=== PATIENT | female | born 1975 | race Caucasian/White ===

== ENCOUNTER 2017-11-26 17:02 | Inpatient (IN) | payer OTHER, SELFPAY ==
[2017-11-26] VITALS (7 sets, daily range): BP systolic 99–116; BP diastolic 54–83; PULSE 94–111; RESP 16–24; TEMP 38.3–38.6; O2SAT 96–99
--- NOTE | 2017-11-26 17:36 | DI.CT.S_ITS ---
PROCEDURE: CT ABDOMEN PELVIS W CON INDICATIONS: left side abdominal pain, black stools, abd tenderness/bloating TECHNIQUE: After the administration of oral and intravenous contrast, 5 mm thick sections acquired from the diaphragms to the symphysis. 5 mm thick coronal and sagittal reformats were performed. For radiation dose reduction, the following was used: automated exposure control, adjustment of mA and/or kV according to patient size. COMPARISON: None. FINDINGS: Image quality: Excellent. ABDOMEN: Lung bases: Lung bases are clear. Heart size is normal. Solid organs: Liver is normal in size and enhancement. Gallbladder is surgically absent. There is mild intrahepatic biliary ductal dilatation. Pancreas enhances normally. Spleen is normal in size and enhancement. No adrenal nodules. Kidneys are normal in size and enhancement, without hydronephrosis. Peritoneum and bowel: Stomach, small bowel, and colon loops are normal in caliber and wall thickness. The appendix is thin walled. No free fluid or air. Nodes and vessels: No retroperitoneal or mesenteric adenopathy. Aorta and inferior vena cava are normal in caliber. Miscellaneous: No ventral hernias. PELVIS: Genitourinary: Bladder wall thickness is normal. Miscellaneous: No inguinal hernias or adenopathy. Bones: No suspicious bony lesions. No vertebral body compression fractures. There are bilateral pars interarticularis defects. There is grade L5 on S1 anterolisthesis. IMPRESSION: 1. No acute intra-abdominal findings. Normal appendix. 2. Mild intrahepatic ductal dilatation likely related to prior cholecystectomy. 3. L5/S1 spondylolysis and spondylolisthesis. Dictated by: Delma Singleton M.D. on 11/26/2017 at 19:24 Approved by: Delma Singleton M.D. on 11/26/2017 at 19:28
[2017-11-26] MEDS: HYDROMORPHONE 0.5 MG INJ 1 MG IV (17:44)
[2017-11-26] MEDS: SODIUM CHLORIDE 0.9% 1,000 ML 1000 ML IV ×2 (17:44→22:17)
[2017-11-26] MEDS: ONDANSETRON 4 MG/2 ML INJ IV (17:45)
--- NOTE | 2017-11-26 18:22 | DI.RAD.S_ITS ---
PROCEDURE: XR CHEST 1V INDICATIONS: POSSIBLE FREE AIR TECHNIQUE: One view of the chest was acquired. COMPARISON: None. FINDINGS: Surgical changes and devices: None. Lungs and pleura: No pleural effusions or pneumothorax. Lungs are clear. Mediastinum: Mediastinal contours appear normal. Heart size is normal. Bones and chest wall: No suspicious bony lesions. Overlying soft tissues appear unremarkable. IMPRESSION: No acute cardiopulmonary findings. Dictated by: Delma Singleton M.D. on 11/26/2017 at 19:17 Approved by: Delma Singleton M.D. on 11/26/2017 at 19:17
[2017-11-26 18:39] LABS: Add Manual Diff / Slide Review NO; Basophils Percent Auto 0.2 % (0-2); Eosinophils Percent Auto 0.1 % (2-4); Hematocrit 39.6 % (36-46); Hemoglobin 13.9 g/dL (12.0-16.0); Lymphocytes Percent Auto 6.7 % (25-40); Mean Corpuscular HGB Conc 35.1 % (30-36); Mean Corpuscular Hemoglobin 34.5 PG (26-34); Mean Corpuscular Volume 98.6 fL (80-100); Monocytes Percent Auto 9.6 % (3-14); Neutrophils Absolute Auto 11000 /uL (3000-5900); Neutrophils Percent Auto 83.4 % (50-75); Platelet Count 192 X10^3/uL (150-400); Red Blood Cell Count 4.01 X10^6/uL (4.0-5.2); Red Cell Distribution Width 12.7 % (11.6-14.8); White Blood Cell Count 13.1 X10^3/uL (4.5-11.0)
[2017-11-26] MEDS: HALOPERIDOL 5 MG/ML VIAL 2 MG IV (18:40)
[2017-11-26 18:51] LABS: Lipase 122 U/L (23-300)
[2017-11-26 18:52] LABS: Alanine Aminotransferase 171 IU/L (9-52); Albumin Globulin Ratio 1.4 (1.0-2.8); Alkaline Phosphatase 362 U/L (38-126); Aspartate Aminotransferase 193 IU/L (14-36); Bilirubin Total 1.2 mg/dL (0.2-1.3); Blood Urea Nitrogen 11 mg/dL (7-17); Calcium 8.5 mg/dL (8.4-10.2); Carbon Dioxide 26 mmol/L (22-32); Chloride 97 mmol/L (98-107); Estimated Glomerular Filt Rate > 60.0 mL/min (>60); Globulin 2.9 g/dL (1.7-4.1); Glucose 92 mg/dL (70-100); HEMOLYSIS 17 (0-50); Potassium 3.3 mmol/L (3.4-5.1); Sodium 134 mmol/L (137-145); Total Protein 6.9 g/dL (6.3-8.2)
[2017-11-26 18:56] LABS: C-Reactive Protein Quant 5.3 mg/dL (<1.0)
[2017-11-26 19:09] LABS: Erythrocyte Sedimentation Rate 18 MM/HR (0-20)
[2017-11-26 20:49] LABS: Appearance Urine UA CLEAR; Bilirubin Urine UA NEGATIVE (NEGATIVE); Color Urine UA YELLOW; Glucose Urine UA NEGATIVE (Normal); Ketones Urine UA 1+ (NEGATIVE); Leukocyte Esterase Urine UA 1+ (NEGATIVE); Nitrite Urine UA POSITIVE (Negative); Occult Blood Urine UA 2+ (Negative); Protein Urine UA TRACE (Negative); Specific Gravity Urine UA <=1.005 (1.000-1.035); Urobilinogen Urine UA 0.2 E.U./dL (0.2); pH Urine UA 6.5 (4.5-8.0)
[2017-11-26 20:52] LABS: Urine Amphetamines Negative (Negative); Urine Barbiturates Negative (Negative); Urine Benzodiazepines Negative (Negative); Urine Cocaine Negative (Negative); Urine MDMA Negative (Negative); Urine Methadone Positive (Negative); Urine Methamphetamines Negative (Negative); Urine Morphine/Opi cutoff 2000 Negative (Negative); Urine Oxycodone Negative (Negative); Urine Phencyclidine Negative (Negative); Urine Tetrahydrocannabinol Positive (Negative); Urine Tricyclic Antidepressant Negative (Negative)
[2017-11-26 20:59] LABS: Bacteria Urine Occasional (0-1); Culture Indicated Urine Specimen Cultured; RBC Urine 0-1/HPF (0-5/HPF); Squamous Epithelial Cell Urine 0-1 /HPF; WBC Urine 5-10/HPF (0-5/HPF)
--- NOTE | 2017-11-26 21:25 | ED_ITS ---
HPI - Abdominal Pain General Chief Complaint: Abdominal Pain Stated Complaint: BLACK STOOLS BACK AND STOMACH PAIN Time Seen by Provider: 11/26/17 17:37 History of Present Illness HPI narrative: HPI 42-year-old female presents with poorly articulate history most notable for 2 days of apparent left flank and epigastric pain and possible dark tarry stools. Patient appears to be in physical and emotional discomfort and is unable to fully characterize whether or not she is having dysuria, abnormal bowel movements, or further symptoms. M/S/F/SocHx notable for: RSD, cholecystectomy, spinal stimulator; remainder reviewed with patient and in chart. ROS: unable to accurately obtain secondary to patient presentation Exam Gen: pleasant, tearful, crying out in pain intermittently, not in extremis. HEENT: NC, AT, PEERL, EOMI. Resp: Clear to auscultation bilaterally, normal work of breathing, no accessory muscle usage. Card: Regular rate and rhythm with no murmurs, rubs, or gallops, extremities warm and well perfused. GI: mild diffuse tenderness to palpation, no rebound, no guarding. : No suprapubic tenderness to palpation. MSK: No visible deformities, strength and tone without visually appreciable deficit. Skin: Normal color with no visible lesions. Neuro: AO x 3, no facial asymmetry, vision and hearing WNL. Psych: Mood and affect appropriate. Labs / Imaging: WBC 13.1, HB 13.9, sodium 134, potassium 3.3, total bilirubin 1.2, AST 193, ALT 171, ALP 362, lipase 122, lactic acid 1.0, CRP 5.3, ESR 18 CXR: no acute cardiopulmonary findings. CT Abd/Pelvis: no acute intrabdominal findings. Normal appendix. Mild intrahepatic ductal dilation likely related to prior cholecystectomy. L5/S1 spondylolysis and spondylolisthesis. UA - positive nitrites, 1+ leukocyte esterase, occasional bacteria. UDS with methadone and marijuana. CT thoracic and lumbar spine: no radiographic evidence of infection. MDM Previous chart, nursing note, labs, imaging, and vitals reviewed. A: 42-year-old female presents with poorly articulate history most notable for 2 days of apparent left flank and epigastric pain and possible dark tarry stools. DDx & Evaluation: * pulmonary - patient's chest x-ray is without evidence of abnormalities, given the absence of cough or further corroborating symptoms strongly doubt pneumonia , effusion, or other acute intrathoracic abnormalities. * Intrabdominal - no concerning features on history, ROS, CT abdomen pelvis without evidence of acute intra-abdominal abnormalities, labs without evidence of clinically significant abnormalities. Strongly doubt a medically or surgically significant intrabdominal pathology. * Genitourinary - no evidence of ureterolithiasis, hydronephrosis by imaging. History without evidence of public complaints. UA concerning for UTI, given fever and flank pain suspect pyelonephritis. Patient prescribed ciprofloxacin. First dose given in the ED. * Skin - exam without evidence abnormalities. Given duration symptoms vesicles will be expected at this point if patient has shingles. * Spine - initially without identifiable risk factors, further discussion at repeat evaluation at 11:09 PM progress blurb. * Overall patient symptoms are of unclear etiology, suspect it may be multifactorial (please see additional history below), concern for excessive gabapentin use/possible abuse. Patient discharged with instructions to use NSAIDs and follow up with PCP. Note was made of the initial vitals which apparently reported fever, no evidence of fever on repeat vitals, no interim antipyretics given. ED Course: * 1 L NS, Zofran, hydromorphone, and Haldol given for initial symptom management. * Patient significantly more relaxed and calm after above interventions, further history obtained, patient reports that she has had long-standing flank discomfort at the site of her prior spinal stimulator implantation site ( implanted on at least 2 occasions, now removed), patient is taken gabapentin for treatment of her pain. [facility], she has run out of her gabapentin one week ago - or approximately 6 weeks early. The patient denies taking further medications. Patient states her pain has been flared up for at least one week. Patient denies dysuria, urinary frequency. Continues to ambulate with full strength. Repeat examination of left lower back with well healed surgical scar, skin visually normal, no palpable crepitus, warmth, no erythema, no fluctuance, no discharge, no spinal tenderness palpation throughout the thoracic and lumbar spine or palpable abnormalities. * After tentative diagnosis of pyelonephritis patient was given Toradol, Cipro, and 1 L normal saline. Patient hemodynamically stable, no evidence of end organ dysfunction, appropriate for outpatient management. 23:09 - repeat evaluation patient clinically Sarmiento of worsening, febrile warmth to touch, heart rate 95, SaO2 99% on room air care and blood pressure 108 /90. Repeat evaluation with poorly localized lower T-spine and upper L-spine pain. Given the absence of inflammation around her left kidney on CT there is question as to whether her fever is from pyelonephritis versus spinal epidural abscess. As the patient is at best an unreliable historian, gives a history that is not consistent with her urine drug screen, there is concerned that she may have unrecognized risk factors for spinal infection. Blood cultures added on , patient given vancomycin and Zosyn. 23:21 - Additional history volunteered but patient. Patient reports that she is been less than forthright regarding her history, drug use, and reports that she had a prior spinal infection. Patient is unable to further characterize it, believes he was bacteria or parasites. 02:47 - patient remains febrile. CT without evidence of spinal infection. Given poor specificity for osteomyelitis, discitis, or small spinal epidural abscess is this is not definitively rule out spinal infection. Patient kept in the department for observation and MRI in the morning. 07:02 - patient care transfer [place] [facility] [place]. Repeat labs and MRI pending. Patient remains febrile. Impression: fever, back pain. (please reference below for remainder of encounter information) Related Data Previous Rx's Medication Instructions Recorded ciprofloxacin HCl [Cipro] 500 mg PO BID #20 tab 11/26/17 Allergies Allergy/AdvReac Type Severity Reaction Status Date / Time ketamine Allergy Verified 11/26/17 17:34 Exam Initial Vital Signs Initial Vital Signs: Vital Signs Temperature 101.5 F H 11/26/17 17:30 Pulse Rate 111 H 11/26/17 17:30 Respiratory Rate 24 11/26/17 17:30 Blood Pressure 110/54 L 11/26/17 17:30 Pulse Oximetry 99 11/26/17 17:30 Course Orders Ordered: ED Orders 11/26/17 23:30 CT lumbar spine w con Stat CT thoracic spine w con Stat 11/27/17 06:08 MR lumbar spine w con Urgent MR thoracic spine w con Stat 11/27/17 06:15 Basic Metabolic Panel Stat Complete Blood Count AUTO DIFF Stat Lactate (Lactic Acid) Stat Procalcitonin Stat Hydromorphone HCl (Dilaudid) 1 mg IV Q4H PRN PRN Reason: Pain, Severe Last Admin: 11/27/17 02:47 Dose: 1 mg Ciprofloxacin (Cipro) 400 mg in 200 mls @ 200 mls/hr IV NOW LEONORA Last Infusion: 11/26/17 23:12 Dose: 0 mls/hr Admin: 11/26/17 22:16 Dose: 200 mls/hr Discontinued Medications Haloperidol (Haldol) 2 mg IV NOW ONE Stop: 11/26/17 18:30 Last Admin: 11/26/17 18:40 Dose: 2 mg Haloperidol (Haldol) 1.5 mg IV NOW ONE Stop: 11/27/17 06:21 Hydromorphone HCl (Dilaudid) 1 mg IV NOW ONE Stop: 11/26/17 17:38 Last Admin: 11/26/17 17:44 Dose: 1 mg Hydromorphone HCl (Dilaudid) 1 mg IV NOW ONE Stop: 11/27/17 05:39 Last Admin: 11/27/17 05:55 Dose: 1 mg Sodium Chloride (Normal Saline 0.9%) 1,000 mls @ 1,000 mls/hr IV BOLUS ONE Stop: 11/26/17 18:37 Last Infusion: 11/26/17 19:06 Dose: 0 mls/hr Admin: 11/26/17 17:44 Dose: 1,000 mls/hr Sodium Chloride (Normal Saline 0.9%) 1,000 mls @ 1,000 mls/hr IV BOLUS ONE Stop: 11/26/17 22:22 Last Infusion: 11/26/17 23:13 Dose: 0 mls/hr Admin: 11/26/17 22:17 Dose: 1,000 mls/hr Piperacillin/Tazobactam/Dextrose (Zosyn) 4.5 gm in 100 mls @ 200 mls/hr IV NOW ONE Stop: 11/26/17 23:40 Last Infusion: 11/27/17 02:33 Dose: 0 mls/hr Admin: 11/27/17 01:30 Dose: 200 mls/hr Vancomycin HCl 1,000 mg/ (Sodium Chloride) 500 mls @ 333.333 mls/hr IV NOW ONE Stop: 11/26/17 23:12 Last Infusion: 11/27/17 05:27 Dose: 130 mls/hr Admin: 11/27/17 02:33 Dose: 333.333 mls/hr Sodium Chloride (Normal Saline 0.9%) 1,000 mls @ 1,000 mls/hr IV BOLUS ONE Stop: 11/27/17 06:36 Last Admin: 11/27/17 05:54 Dose: 1,000 mls/hr Ketorolac Tromethamine (Toradol) 15 mg IV NOW ONE Stop: 11/26/17 21:24 Last Admin: 11/26/17 22:16 Dose: 15 mg Ketorolac Tromethamine (Toradol) 15 mg IV NOW ONE Stop: 11/27/17 05:37 Last Admin: 11/27/17 05:54 Dose: 15 mg Ondansetron HCl (Zofran) 4 mg IV NOW ONE Stop: 11/26/17 17:38 Last Admin: 11/26/17 17:45 Dose: 4 mg Vital Signs - 8 hr 11/27/17 01:25 11/27/17 01:36 11/27/17 02:49 Temperature 100.9 F H Pulse Rate 87 94 H Respiratory Rate Blood Pressure [Left Arm] 93/82 H 111/64 Pulse Oximetry 97 97 11/27/17 02:54 11/27/17 05:24 Temperature 102.1 F H 102.3 F H Pulse Rate 96 H Respiratory Rate 16 Blood Pressure [Left Arm] 104/67 Pulse Oximetry 93 MDM - Abdominal Pain Lab Data Result diagrams: 11/27/17 06:33 11/27/17 06:33 Lab Results 11/26/17 11/26/17 11/26/17 Range/Units 17:25 18:11 18:15 WBC 13.1 H (4.5-11.0) X10^3/uL RBC 4.01 (4.0-5.2) X10^6/uL Hgb 13.9 (12.0-16.0) g/dL Hct 39.6 (36-46) % MCV 98.6 (80-100) fL MCH 34.5 H (26-34) PG MCHC 35.1 (30-36) % RDW 12.7 (11.6-14.8) % Plt Count 192 (150-400) X10^3/uL Neut % (Auto) 83.4 H (50-75) % Lymph % (Auto) 6.7 L (25-40) % [place] % (Auto) 9.6 (3-14) % Eos % (Auto) 0.1 L (2-4) % Baso % (Auto) 0.2 (0-2) % Neut # (Auto) 12300 H (2581-4185) /uL ESR (0-20) MM/HR Sodium (137-145) mmol/L Potassium (3.4-5.1) mmol/L Chloride (98-107) mmol/L Carbon Dioxide (22-32) mmol/L BUN (7-17) mg/dL Creatinine (0.52-1.04) mg/dL Estimated GFR (>60) mL/min BUN/Creatinine Ratio (6-22) Glucose (70-100) mg/dL Lactate (0.7-2.1) mmol/L Calcium (8.4-10.2) mg/dL Total Bilirubin (0.2-1.3) mg/dL AST (14-36) IU/L ALT (9-52) IU/L Alkaline Phosphatase (38-126) U/L C-Reactive Protein (<1.0) mg/dL Total Protein (6.3-8.2) g/dL Albumin (3.5-5.0) g/dL Globulin (1.7-4.1) g/dL Albumin/Globulin Ratio (1.0-2.8) Lipase (23-300) U/L Serum , Qual Negative (Negative) Urine Color Urine Appearance Urine pH (4.5-8.0) Ur Specific [place] (1.000-1.035) Urine Protein (Negative) Urine Glucose (UA) (Normal) g/dL Urine Ketones (NEGATIVE) Urine Occult Blood (Negative) Urine Nitrate (Negative) Urine Bilirubin (NEGATIVE) Urine Urobilinogen (0.2) E.U./dL Ur Leukocyte Esterase (NEGATIVE) Urine RBC (0-5/HPF) Urine WBC (0-5/HPF) Ur Squamous Epith Cells Urine Bacteria (None) Ur Culture Indicated? Micro UA Comment Urine Opiates Screen (Negative) Ur Oxycodone Screen (Negative) Urine Methadone Screen (Negative) Ur Barbiturates Screen (Negative) U Tricyclic Antidepress (Negative) Ur Phencyclidine Scrn (Negative) Ur Amphetamines Screen (Negative) U Methamphetamines Scrn (Negative) Ur MDMA Scrn (Ecstasy) (Negative) U Benzodiazepines Scrn (Negative) Urine Cocaine Screen (Negative) U Marijuana (THC) Screen (Negative) Blood Type A Positive Antibody Screen Negative 11/26/17 11/26/17 11/26/17 Range/Units 18:15 18:15 18:15 WBC (4.5-11.0) X10^3/uL RBC (4.0-5.2) X10^6/uL Hgb (12.0-16.0) g/dL Hct (36-46) % MCV (80-100) fL MCH (26-34) PG MCHC (30-36) % RDW (11.6-14.8) % Plt Count (150-400) X10^3/uL Neut % (Auto) (50-75) % Lymph % (Auto) (25-40) % [place] % (Auto) (3-14) % Eos % (Auto) (2-4) % Baso % (Auto) (0-2) % Neut # (Auto) (0848-7802) /uL ESR (0-20) MM/HR Sodium 134 L (137-145) mmol/L Potassium 3.3 L (3.4-5.1) mmol/L Chloride 97 L (98-107) mmol/L Carbon Dioxide 26 (22-32) mmol/L BUN 11 (7-17) mg/dL Creatinine 0.50 L (0.52-1.04) mg/dL Estimated GFR > 60.0 (>60) mL/min BUN/Creatinine Ratio 22.0 (6-22) Glucose 92 (70-100) mg/dL Lactate 1.0 (0.7-2.1) mmol/L Calcium 8.5 (8.4-10.2) mg/dL Total Bilirubin 1.2 (0.2-1.3) mg/dL AST 193 H (14-36) IU/L ALT 171 H (9-52) IU/L Alkaline Phosphatase 362 H (38-126) U/L C-Reactive Protein (<1.0) mg/dL Total Protein 6.9 (6.3-8.2) g/dL Albumin 4.0 (3.5-5.0) g/dL Globulin 2.9 (1.7-4.1) g/dL Albumin/Globulin Ratio 1.4 (1.0-2.8) Lipase 122 (23-300) U/L Serum , Qual (Negative) Urine Color Urine Appearance Urine pH (4.5-8.0) Ur Specific [place] (1.000-1.035) Urine Protein (Negative) Urine Glucose (UA) (Normal) g/dL Urine Ketones (NEGATIVE) Urine Occult Blood (Negative) Urine Nitrate (Negative) Urine Bilirubin (NEGATIVE) Urine Urobilinogen (0.2) E.U./dL Ur Leukocyte Esterase (NEGATIVE) Urine RBC (0-5/HPF) Urine WBC (0-5/HPF) Ur Squamous Epith Cells Urine Bacteria (None) Ur Culture Indicated? Micro UA Comment Urine Opiates Screen (Negative) Ur Oxycodone Screen (Negative) Urine Methadone Screen (Negative) Ur Barbiturates Screen (Negative) U Tricyclic Antidepress (Negative) Ur Phencyclidine Scrn (Negative) Ur Amphetamines Screen (Negative) U Methamphetamines Scrn (Negative) Ur MDMA Scrn (Ecstasy) (Negative) U Benzodiazepines Scrn (Negative) Urine Cocaine Screen (Negative) U Marijuana (THC) Screen (Negative) Blood Type Antibody Screen 11/26/17 11/26/17 11/26/17 Range/Units 18:15 18:15 18:28 WBC (4.5-11.0) X10^3/uL RBC (4.0-5.2) X10^6/uL Hgb (12.0-16.0) g/dL Hct (36-46) % MCV (80-100) fL MCH (26-34) PG MCHC (30-36) % RDW (11.6-14.8) % Plt Count (150-400) X10^3/uL Neut % (Auto) (50-75) % Lymph % (Auto) (25-40) % [place] % (Auto) (3-14) % Eos % (Auto) (2-4) % Baso % (Auto) (0-2) % Neut # (Auto) (9041-4877) /uL ESR 18 (0-20) MM/HR Sodium (137-145) mmol/L Potassium (3.4-5.1) mmol/L Chloride (98-107) mmol/L Carbon Dioxide (22-32) mmol/L BUN (7-17) mg/dL Creatinine (0.52-1.04) mg/dL Estimated GFR (>60) mL/min BUN/Creatinine Ratio (6-22) Glucose (70-100) mg/dL Lactate TNP (0.7-2.1) mmol/L Calcium (8.4-10.2) mg/dL Total Bilirubin (0.2-1.3) mg/dL AST (14-36) IU/L ALT (9-52) IU/L Alkaline Phosphatase (38-126) U/L C-Reactive Protein 5.3 H (<1.0) mg/dL Total Protein (6.3-8.2) g/dL Albumin (3.5-5.0) g/dL Globulin (1.7-4.1) g/dL Albumin/Globulin Ratio (1.0-2.8) Lipase (23-300) U/L Serum , Qual (Negative) Urine Color Urine Appearance Urine pH (4.5-8.0) Ur Specific [place] (1.000-1.035) Urine Protein (Negative) Urine Glucose (UA) (Normal) g/dL Urine Ketones (NEGATIVE) Urine Occult Blood (Negative) Urine Nitrate (Negative) Urine Bilirubin (NEGATIVE) Urine Urobilinogen (0.2) E.U./dL Ur Leukocyte Esterase (NEGATIVE) Urine RBC (0-5/HPF) Urine WBC (0-5/HPF) Ur Squamous Epith Cells Urine Bacteria (None) Ur Culture Indicated? Micro UA Comment Urine Opiates Screen (Negative) Ur Oxycodone Screen (Negative) Urine Methadone Screen (Negative) Ur Barbiturates Screen (Negative) U Tricyclic Antidepress (Negative) Ur Phencyclidine Scrn (Negative) Ur Amphetamines Screen (Negative) U Methamphetamines Scrn (Negative) Ur MDMA Scrn (Ecstasy) (Negative) U Benzodiazepines Scrn (Negative) Urine Cocaine Screen (Negative) U Marijuana (THC) Screen (Negative) Blood Type Antibody Screen 11/26/17 11/26/17 11/27/17 Range/Units 20:35 20:35 06:33 WBC 11.8 H (4.5-11.0) X10^3/uL RBC 3.53 L (4.0-5.2) X10^6/uL Hgb 12.4 (12.0-16.0) g/dL Hct 35.2 L (36-46) % MCV 99.9 (80-100) fL MCH 35.0 H (26-34) PG MCHC 35.1 (30-36) % RDW 13.0 (11.6-14.8) % Plt Count 149 L (150-400) X10^3/uL Neut % (Auto) 83.2 H (50-75) % Lymph % (Auto) 8.6 L (25-40) % [place] % (Auto) 7.9 (3-14) % Eos % (Auto) 0.1 L (2-4) % Baso % (Auto) 0.2 (0-2) % Neut # (Auto) 9800 H (6596-7250) /uL ESR (0-20) MM/HR Sodium (137-145) mmol/L Potassium (3.4-5.1) mmol/L Chloride (98-107) mmol/L Carbon Dioxide (22-32) mmol/L BUN (7-17) mg/dL Creatinine (0.52-1.04) mg/dL Estimated GFR (>60) mL/min BUN/Creatinine Ratio (6-22) Glucose (70-100) mg/dL Lactate (0.7-2.1) mmol/L Calcium (8.4-10.2) mg/dL Total Bilirubin (0.2-1.3) mg/dL AST (14-36) IU/L ALT (9-52) IU/L Alkaline Phosphatase (38-126) U/L C-Reactive Protein (<1.0) mg/dL Total Protein (6.3-8.2) g/dL Albumin (3.5-5.0) g/dL Globulin (1.7-4.1) g/dL Albumin/Globulin Ratio (1.0-2.8) Lipase (23-300) U/L Serum , Qual (Negative) Urine Color Yellow Urine Appearance Clear Urine pH 6.5 (4.5-8.0) Ur Specific [place] <=1.005 (1.000-1.035) Urine Protein Trace H (Negative) Urine Glucose (UA) Negative (Normal) g/dL Urine Ketones 1+ H (NEGATIVE) Urine Occult Blood 2+ H (Negative) Urine Nitrate Positive H (Negative) Urine Bilirubin Negative (NEGATIVE) Urine Urobilinogen 0.2 (0.2) E.U./dL Ur Leukocyte Esterase 1+ H (NEGATIVE) Urine RBC 0-1/hpf (0-5/HPF) Urine WBC 5-10/hpf H (0-5/HPF) Ur Squamous Epith Cells 0-1 /hpf Urine Bacteria Occasional (0-1) (None) Ur Culture Indicated? Specimen cultured Micro UA Comment Not Reportable Urine Opiates Screen Negative (Negative) Ur Oxycodone Screen Negative (Negative) Urine Methadone Screen Positive H (Negative) Ur Barbiturates Screen Negative (Negative) U Tricyclic Antidepress Negative (Negative) Ur Phencyclidine Scrn Negative (Negative) Ur Amphetamines Screen Negative (Negative) U Methamphetamines Scrn Negative (Negative) Ur MDMA Scrn (Ecstasy) Negative (Negative) U Benzodiazepines Scrn Negative (Negative) Urine Cocaine Screen Negative (Negative) U Marijuana (THC) Screen Positive H (Negative) Blood Type Antibody Screen 18 18 Range/Units 06:33 06:33 WBC (4.5-11.0) X10^3/uL RBC (4.0-5.2) X10^6/uL Hgb (12.0-16.0) g/dL Hct (36-46) % MCV (80-100) fL MCH (26-34) PG MCHC (30-36) % RDW (11.6-14.8) % Plt Count (150-400) X10^3/uL Neut % (Auto) (50-75) % Lymph % (Auto) (25-40) % [place] % (Auto) (3-14) % Eos % (Auto) (2-4) % Baso % (Auto) (0-2) % Neut # (Auto) (6001-4077) /uL ESR (0-20) MM/HR Sodium 135 L (137-145) mmol/L Potassium 3.0 L (3.4-5.1) mmol/L Chloride 100 (98-107) mmol/L Carbon Dioxide 26 (22-32) mmol/L BUN 7 (7-17) mg/dL Creatinine 0.60 (0.52-1.04) mg/dL Estimated GFR > 60.0 (>60) mL/min BUN/Creatinine Ratio 11.7 (6-22) Glucose 99 (70-100) mg/dL Lactate 0.6 L (0.7-2.1) mmol/L Calcium 7.6 L (8.4-10.2) mg/dL Total Bilirubin (0.2-1.3) mg/dL AST (14-36) IU/L ALT (9-52) IU/L Alkaline Phosphatase (38-126) U/L C-Reactive Protein (<1.0) mg/dL Total Protein (6.3-8.2) g/dL Albumin (3.5-5.0) g/dL Globulin (1.7-4.1) g/dL Albumin/Globulin Ratio (1.0-2.8) Lipase (23-300) U/L Serum , Qual (Negative) Urine Color Urine Appearance Urine pH (4.5-8.0) Ur Specific [place] (1.000-1.035) Urine Protein (Negative) Urine Glucose (UA) (Normal) g/dL Urine Ketones (NEGATIVE) Urine Occult Blood (Negative) Urine Nitrate (Negative) Urine Bilirubin (NEGATIVE) Urine Urobilinogen (0.2) E.U./dL Ur Leukocyte Esterase (NEGATIVE) Urine RBC (0-5/HPF) Urine WBC (0-5/HPF) Ur Squamous Epith Cells Urine Bacteria (None) Ur Culture Indicated? Micro UA Comment Urine Opiates Screen (Negative) Ur Oxycodone Screen (Negative) Urine Methadone Screen (Negative) Ur Barbiturates Screen (Negative) U Tricyclic Antidepress (Negative) Ur Phencyclidine Scrn (Negative) Ur Amphetamines Screen (Negative) U Methamphetamines Scrn (Negative) Ur MDMA Scrn (Ecstasy) (Negative) U Benzodiazepines Scrn (Negative) Urine Cocaine Screen (Negative) U Marijuana (THC) Screen (Negative) Blood Type Antibody Screen Discharge Plan Departure Patient Disposition: Home, Self-Care Clinical Impression: Pyelonephritis Activity Restrictions/Additional Instructions: You were in seen in the [facility] Emergency Department for evaluation of the flank pain. At time of your evaluation you are tentatively believed to pyelonephritis. Please read and follow all of the instructions below. Please follow up with your primary care physician within 24 hours for repeat evaluation further care. If you have any new symptoms or if you are at all concerned about your health please return immediately to the emergency department. If you do not have a primary care physician, please contact [facility], [facility] at [phone], [facility] at [phone], or [facility] at [phone] to arrange follow up care. If you have health insurance, please also contact your insurer for a list of accepting providers under your policy, you may contact these providers for further health care. Your care today was limited to identifying and treating emergent medical problems only. Many people have subtle differences in their test results that require follow up with their outpatient physician(s) to correctly determine if this represents a normal variation or concerning abnormality with respect to your specific health. The care given to you today was limited to identifying and treating emergent medical problems - you need to request a copy of all of your medical records from today's visit and follow up with your outpatient physician(s) to review both today's visit and your overall health. You have an infection of your urinary tract that has spread to your kidneys ( pyelonephritis). * Take the antibiotics as prescribed. * Stay well hydrated (8-12 glasses of water per day). * Take ibuprofen 600 mg every 6-8 hours for relief of pain, you may also take acetaminophen 1000 mg every 6 hours for relief of pain. Please return to the emergency department if you develop any of the following: * Fever above 101.5?F or shaking chills. * Worsening flank pain. * Worsening back pain. * Blood in your urine. * Decreased urine output or difficulty urinating. * Nausea or vomiting. * If you are otherwise concerned about your health. If after 3 days of you still have pain on urination or a sensation that you need to urinate frequently please follow up with your primary care physician. Ciprofloxacin (Brand Name: Cipro) * Take 500 mg every 12 hours for the next 10 days. * Call your physician or the emergency deparment if you believe you are having side effects due to this drug. * Please read the warnings below. CIPRO - WARNING: This medication may rarely cause tendon damage (e.g., tendonitis, tendon rupture) during or after treatment. Your risk for tendon problems is greater if you are over 60 years of age, if you are taking corticosteroids (such as prednisone), or if you have a kidney, heart or lung transplant. Stop exercising, rest, and seek immediate medical attention if you develop joint/muscle/tendon pain or swelling. CIPRO - HOW TO USE: Read the Medication Guide provided by your pharmacist before you start using ciprofloxacin and each time you get a refill. If you have any questions, consult your doctor or pharmacist. This medication may be taken with or without food, usually twice a day in the morning and evening or as directed by your doctor. The dosage and length of treatment is based on your medical condition and response to treatment. Drink plenty of fluids while taking this medication unless your doctor tells you otherwise. Take this medication at least 2 hours before or 6 hours after taking other products that may bind to it, decreasing its effectiveness. Ask your pharmacist about the other products you take. Some examples include: quinapril, vitamins/minerals ( including iron and zinc supplements), and products containing magnesium, aluminum, or calcium (such as antacids, didanosine solution, calcium supplements ). Calcium-rich foods, including dairy products (such as milk, yogurt) or calcium-enriched juice, can also decrease the effect of this medication. Take this medication at least 2 hours before or 6 hours after eating calcium-rich foods, unless you are eating these foods as part of a larger meal that contains other ([id number]) foods. These other foods decrease the calcium binding effect. Ask your doctor or pharmacist about safely using nutritional supplements /replacements with this medication. CIPRO - SIDE EFFECTS: See also Warning section. Nausea, diarrhea, dizziness, lightheadedness, headache, or trouble sleeping may occur. If any of these effects persist or worsen, tell your doctor or pharmacist promptly. Remember that your doctor has prescribed this medication because he or she has judged that the benefit to you is greater than the risk of side effects. Many people using this medication do not have serious side effects. Tell your doctor immediately if any of these unlikely but serious side effects occur: mental/ mood changes (e.g., anxiety, confusion, hallucinations, depression, rare thoughts of suicide), shaking (tremors), skin that sunburns more easily (sun sensitivity). Ciprofloxacin may rarely cause serious nerve problems that may be reversible if identified and treated early. Seek immediate medical attention if you develop any of the following symptoms: pain/numbness/burning/tingling/ weakness in any part of the body, changes in how you sense touch/pain/ temperature/body position/vibration. Tell your doctor immediately if any of these rare but very serious side effects occur: unusual bruising/bleeding, severe/persistent headache, signs of a new infection (e.g., new/persistent fever , persistent sore throat), unusual change in the amount of urine, change in color of urine (red/pink urine), signs of liver problems (e.g., unusual tiredness, stomach/abdominal pain, persistent nausea/vomiting, yellowing eyes/ skin, dark urine), vision changes. Seek immediate medical attention if any of these rare but very serious side effects occur: severe dizziness, fainting, fast /irregular heartbeat, seizures. This medication may rarely cause a severe intestinal condition (Clostridium difficile-associated diarrhea) due to a type of resistant bacteria. This condition may occur during treatment or weeks to months after treatment has stopped. Do not use anti-diarrhea products or narcotic pain medications if you have any of the following symptoms because these products may make them worse. Tell your doctor immediately if you develop : persistent diarrhea, abdominal or stomach pain/cramping, blood/mucus in your stool. Use of this medication for prolonged or repeated periods may result in oral thrush or a new vaginal yeast infection. Contact your doctor if you notice white patches in your mouth, a change in vaginal discharge, or other new symptoms. A very serious allergic reaction to this drug is rare. However, seek immediate medical attention if you notice any of the following symptoms of a serious allergic reaction: rash, itching/swelling (especially of the face/tongue /throat), severe dizziness, trouble breathing. This is not a complete list of possible side effects. If you notice other effects not listed above, contact your doctor or pharmacist. PRECAUTIONS: Before taking ciprofloxacin, tell your doctor or pharmacist if you are allergic to it; or to other quinolone antibiotics such as norfloxacin, gemifloxacin, levofloxacin, moxifloxacin, or ofloxacin; or if you have any other allergies. This product may contain inactive ingredients, which can cause allergic reactions or other problems. Talk to your pharmacist for more details. Before using this medication, tell your doctor or pharmacist your medical history, especially of: diabetes, heart problems (e.g., recent heart attack), joint/tendon problems (e.g., tendonitis, bursitis), kidney disease, liver disease, nervous system disorder (e.g., peripheral neuropathy), seizure disorder , conditions that increase your risk of seizures (e.g., brain/head injury, brain tumors, cerebral atherosclerosis). Ciprofloxacin may cause a condition that affects the heart rhythm (QT prolongation). QT prolongation can infrequently result in serious (rarely fatal) fast/irregular heartbeat and other symptoms (such as severe dizziness, fainting) that require immediate medical attention. The risk of QT prolongation may be increased if you have certain medical conditions or are taking other drugs that may affect the heart rhythm (see also Drug Interactions section). Before using ciprofloxacin, tell your doctor or pharmacist if you have any of the following conditions: certain heart problems (heart failure, slow heartbeat, QT prolongation in the EKG), family history of certain heart problems (QT prolongation in the EKG, sudden cardiac ). Low levels of potassium or magnesium in the blood may also increase your risk of QT prolongation. This risk may increase if you use certain drugs (such as diuretics/water pills) or if you have conditions such as severe sweating, diarrhea, or vomiting. Talk to your doctor about using ciprofloxacin safely. This medication may rarely cause serious changes in blood sugar levels, especially if you have diabetes. Watch for symptoms of high blood sugar including increased thirst and urination. Also watch for symptoms of low blood sugar such as nervousness, shakiness, fast heartbeat, sweating, or hunger. Check your blood sugar regularly as directed by your doctor and report any changes. If you experience symptoms of low blood sugar, you may raise your blood sugar by using glucose tablets/gel or eating a quick source of sugar such as table sugar, honey, or candy, or drink fruit juice or non-diet soda. Tell your doctor immediately about the reaction and the use of this product. To help prevent low blood sugar, eat meals on a regular schedule, and do not skip meals. This drug may make you dizzy. Do not drive, use machinery, or do any activity that requires alertness until you are sure you can perform such activities safely. Limit alcoholic beverages. This medication may make you more sensitive to the sun. Avoid prolonged sun exposure, tanning booths, and sunlamps. Use a sunscreen and wear protective clothing when outdoors. Caution is advised when using this drug in children because they may be more sensitive to its possible side effects (e.g., joint/tendon problems). Discuss the risks and benefits with the doctor. Kidney function declines as you grow older. This medication is removed by the kidneys. Therefore, older adults may be more sensitive to its side effects such as tendon problems (especially if they are also taking corticosteroids such as prednisone or hydrocortisone) or heart problems. Discuss the risks and benefits with your doctor. During , this medication should be used only when clearly needed. Discuss the risks and benefits with your doctor. This medication passes into breast milk. Consult your doctor before breast-feeding. DRUG INTERACTIONS: See also the How to Use section. The effects of some drugs can change if you take other drugs or herbal products at the same time. This can increase your risk for serious side effects or may cause your medications not to work correctly. These drug interactions are possible, but do not always occur. Your doctor or pharmacist can often prevent or manage interactions by changing how you use your medications or by close monitoring. To help your doctor and pharmacist give you the best care, be sure to tell your doctor and pharmacist about all the products you use (including prescription drugs, nonprescription drugs, and herbal products) before starting treatment with this product. While using this product, do not start, stop, or change the dosage of any other medicines you are using without your doctor's approval. Some products that may interact with this drug include: live bacterial vaccines (e.g., typhoid , BCG), blood thinners (e.g., warfarin), corticosteroids (e.g., prednisone, hydrocortisone), cyclosporine, drugs removed from your body by certain liver enzymes (such as clozapine, duloxetine, phenytoin, ropinirole, tacrine), drugs for diabetes (e.g., glyburide, insulin), methotrexate, nonsteroidal anti- inflammatory drugs (NSAIDs such as ibuprofen, naproxen), probenecid, sevelamer, strontium, tizanidine, theophylline, urinary alkalinizers (e.g., potassium/ sodium citrate). Many drugs besides ciprofloxacin may affect the heart rhythm ( QT prolongation), including amiodarone, dofetilide, quinidine, procainamide, sotalol, certain macrolide antibiotics (e.g., erythromycin, clarithromycin), and certain antipsychotic medications (e.g., pimozide, thioridazine, ziprasidone ), among others. Also report the use of drugs that might increase seizure risk when combined with this medication such as isoniazid (INH), phenothiazines (e.g. , chlorpromazine), or tricyclic antidepressants (e.g., amitriptyline), among others. Consult your doctor or pharmacist for details. Avoid drinking large amounts of beverages containing caffeine (coffee, tea, génesis), eating large amounts of chocolate, or taking elal-chp-vezwbiv products that contain caffeine to keep you awake and alert. This drug may increase and/or prolong the effects of caffeine. This document does not contain all possible drug interactions. Keep a list of all the products you use. Share this list with your doctor and pharmacist to lessen your risk for serious medication problems. Prescriptions: New ciprofloxacin HCl [Cipro] 500 mg tablet 500 mg PO BID Qty: 20 RF: 0
[2017-11-26 21:48] LABS: Pregnancy Test Serum,Qual Negative (Negative)
[2017-11-26] MEDS: CIPROFLOXACIN 400 MG/200 ML PIGGYBACK 200 MG IV (22:16)
[2017-11-26] MEDS: KETOROLAC 60 MG/2 ML VIAL 15 MG IV (22:16)
--- NOTE | 2017-11-26 23:30 | DI.CT.S_ITS ---
PROCEDURE: CT LUMBAR SPINE W CON INDICATIONS: spinal pain + fever TECHNIQUE: After the administration of intravenous Isovue contrast, 3 mm thick sections acquired through the levels of interest. Sagittal and coronal reformats were then constructed. For radiation dose reduction, the following was used: automated exposure control. COMPARISON: [facility], CT, CT ABDOMEN PELVIS W CON, 11/26/2017, 18:53. [facility], MR, MR LUMBAR SPINE WO/W CON, 11/27/2017, 6:34. FINDINGS: Image quality: Excellent. Bones: No fracture or dislocation. There is grade 1 anterolisthesis of L5 over S1 secondary to bilateral pars inter-articularis defects at L5. The moderate to severe degenerative disease at L5-S1. Soft tissues: No paravertebral soft tissue mass or fluid collection. There is a 1 cm indeterminate low-density nodule in the left kidney. IMPRESSION: 1. No CT findings to explain neck pain and fever. 2. Bilateral pars interarticularis defects at L5 causing grade 1 anterolisthesis at L5-S1. 3. A 1 cm indeterminant low-density nodule in the left kidney. A followup ultrasound is suggested. Dictated by: Shubham Qureshi M.D. on 11/27/2017 at 8:15 Approved by: Shubham Qureshi M.D. on 11/27/2017 at 8:28
--- NOTE | 2017-11-26 23:30 | DI.CT.S_ITS ---
PROCEDURE: CT THORACIC SPINE W CON INDICATIONS: spinal pain + fever TECHNIQUE: After the administration of intravenous Isovue contrast, 3 mm thick sections acquired through the levels of interest. Sagittal and coronal reformats were then constructed. For radiation dose reduction, the following was used: automated exposure control. COMPARISON: None. FINDINGS: Image quality: Excellent. Bones: Mild to moderate degenerative disc disease noted at the mid cervical spine. Soft tissues: No inflammation seen. IMPRESSION: No sign of discitis or osteomyelitis, but please note that MR scanning without and with contrast provides more accurate assessment and should be obtained if unusual symptoms persist. Dictated by: Rey Santillan M.D. on 11/27/2017 at 8:07 Approved by: Rey Santillan M.D. on 11/27/2017 at 8:08
--- NOTE | 2017-11-26 23:33 | PC.NURSE ---
called down to lab inquiring about blood cultures not being processed. Lab states blood culture order was canceled previously by . New order placed, cultures in lab per microbiology lab manager and will be processed with new order.
[2017-11-27] VITALS (27 sets, daily range): BP systolic 89–141; BP diastolic 49–88; PULSE 68–98; RESP 12–18; TEMP 35.7–39.1; O2SAT 93–100; BMI 22.0
[2017-11-27] MEDS: PIPERACILLIN-TAZO 4.5 GM/100 ML FROZ.PIGGY IV (01:30)
[2017-11-27] MEDS: VANCOMYCIN 1,000 MG in SODIUM CHLORIDE 0.9% 500 ML 333.333 ML IV (02:33)
[2017-11-27] MEDS: HYDROMORPHONE 0.5 MG INJ 1 MG IV ×3 (02:47→08:55)
[2017-11-27] MEDS: SODIUM CHLORIDE 0.9% 1,000 ML 1000 ML IV ×2 (05:54→13:03)
[2017-11-27] MEDS: KETOROLAC 60 MG/2 ML VIAL 15 MG IV (05:54)
--- NOTE | 2017-11-27 06:08 | DI.MRI.S_ITS ---
PROCEDURE: MR THORACIC SPINE WO/W CON INDICATIONS: Fever. Lower left sided back pain TECHNIQUE: Noncontrast sagittal T1 spin echo and T2 fast spin echo, sagittal STIR, axial T1 and T2 fast spin echo through the thoracic spine. After the administration of contrast, axial and sagittal T1 spin echo with fat saturation through the thoracic spine. COMPARISON: [facility], CT, CT THORACIC SPINE W CON, 11/26/2017, 23:49. FINDINGS: Image quality: Excellent. Alignment and curvature: There is normal bony alignment. Marrow: Marrow is of normal overall signal. No acute vertebral body compression fractures. Spinal cord: Visualized spinal cord is of normal signal and size, without abnormal enhancement. Paraspinous soft tissues: No paravertebral masses or abnormal enhancement. Miscellaneous: Mild multilevel degenerative disc changes are noted in the mid thoracic spine. Central canal and foramina appear widely patent at all scanned levels. IMPRESSION: 1. No epidural or paraspinous abscess. 2. No evidence of osteomyelitis-discitis. 3. No central stenosis. 4. No neural foraminal narrowing. 5. No neural impingement. Dictated by: Daria Stanley MD, PhD on 11/27/2017 at 8:14 Approved by: Daria Stanley MD, PhD on 11/27/2017 at 8:26
--- NOTE | 2017-11-27 06:08 | DI.MRI.S_ITS ---
PROCEDURE: MR LUMBAR SPINE WO/W CON INDICATIONS: Fever with left sided low back pain TECHNIQUE: Noncontrast sagittal T1 spin echo and T2 fast spin echo, sagittal STIR, axial T1 and T2 fast spin echo through the lumbar spine. In cases with scoliosis, additional coronal T2 fast spin echo may be performed. After the administration of contrast, sagittal and axial T1 spin echo with fat saturation through the lumbar spine. COMPARISON: [facility], CT, CT LUMBAR SPINE W CON, 11/26/2017, 23:49. FINDINGS: Image quality: Excellent. Alignment and curvature: There is grade 1 L5-S1 isthmic spondylolisthesis which is stable compared to prior CT scan. Marrow: Marrow is of normal overall signal. No acute vertebral body compression fractures. No suspicious marrow enhancement. Spinal cord: Conus medullaris terminates at the L2 level. Visualized spinal cord demonstrates normal signal, without suspicious enhancement. Paraspinous soft tissues: No paravertebral masses or abnormal enhancement. L1-L2: Normal appearance. L2-L3: Normal appearance. L3-L4: Normal appearance. L4-L5: Normal appearance. L5-S1: Loss of disc signal. Minimal, diffuse disc bulge. No central stenosis. Severe left and moderate right neural foraminal narrowing secondary to disc disease and isthmic spondylolisthesis with flexion deformity exiting left L5 nerve root. IMPRESSION: 1. Grade 1 L5-S1 isthmic spondylolisthesis. 2. Mild L5-S1 degenerative disc disease. 3. No central stenosis. 4. Moderate right and severe left L5-S1 neural foraminal narrowing. 5. Flattened deformity exiting left L5 nerve root secondary to neural foraminal narrowing. Please correlate with clinical data. 6. No epidural or paraspinous abscess. Dictated by: Daria Stanley MD, PhD on 11/27/2017 at 8:08 Approved by: Daria Stanley MD, PhD on 11/27/2017 at 8:12
[2017-11-27] MEDS: HALOPERIDOL 5 MG/ML VIAL 1.5 MG IV (06:25)
[2017-11-27 06:43] LABS: Add Manual Diff / Slide Review NO; Basophils Percent Auto 0.2 % (0-2); Eosinophils Percent Auto 0.1 % (2-4); Hematocrit 35.2 % (36-46); Hemoglobin 12.4 g/dL (12.0-16.0); Lymphocytes Percent Auto 8.6 % (25-40); Mean Corpuscular HGB Conc 35.1 % (30-36); Mean Corpuscular Volume 99.9 fL (80-100); Monocytes Percent Auto 7.9 % (3-14); Neutrophils Absolute Auto 9800 /uL (3000-5900); Neutrophils Percent Auto 83.2 % (50-75); Platelet Count 149 X10^3/uL (150-400); Red Blood Cell Count 3.53 X10^6/uL (4.0-5.2); White Blood Cell Count 11.8 X10^3/uL (4.5-11.0)
[2017-11-27 06:50] LABS: Lactate (Lactic Acid) 0.6 mmol/L (0.7-2.1)
[2017-11-27 06:53] LABS: BUN Creatinine Ratio 11.7 (6-22); Blood Urea Nitrogen 7 mg/dL (7-17); Calcium 7.6 mg/dL (8.4-10.2); Carbon Dioxide 26 mmol/L (22-32); Chloride 100 mmol/L (98-107); Estimated Glomerular Filt Rate > 60.0 mL/min (>60); Glucose 99 mg/dL (70-100); HEMOLYSIS < 15 (0-50); Sodium 135 mmol/L (137-145)
[2017-11-27 07:10] LABS: Procalcitonin 0.17 ng/mL (<0.5)
--- NOTE | 2017-11-27 07:38 | PC.NURSE ---
Patient sleeping, awakens intermittently during checking of vitals to moan and complain of pain. Asked for pain meds, went back to sleep. DO aware.
[2017-11-27 08:35] LABS: Acinetobacter baumannii Not Detected (Not Detect); Candida albicans Not Detected (Not Detect); Candida glabrata Not Detected (Not Detect); Candida krusei Not Detected (Not Detect); Candida parapsilosis Not Detected (Not Detect); Candida tropicalis Not Detected (Not Detect); E. coli Detected (Not Detect); Enterobacter cloacae complex Not Detected (Not Detect); Enterococcus species Not Detected (Not Detect); Haemophilus influenzae Not Detected (Not Detect); KPC (carbapenem-resist gene) Not Detected (Not Detect); Listeria monocytogenes Not Detected (Not Detect); Neisseria meningitidis Not Detected (Not Detect); Proteus species Not Detected (Not Detect); Pseudomonas aeruginosa Not Detected (Not Detect); Serratia marcescens Not Detected (Not Detect); Staphylococcus species Not Detected (Not Detect); Streptococcus agalactiae (Gr B Not Detected (Not Detect); Streptococcus pneumonia Not Detected (Not Detect); Streptococcus pyogenes (Gr A) Not Detected (Not Detect); Streptococcus species Not Detected (Not Detect)
[2017-11-27 08:36] LABS: Enterobacteriaceae species Detected (Not Detect)
[2017-11-27] MEDS: ACETAMINOPHEN 325 MG TABLET 975 MG PO (08:57)
[2017-11-27] MEDS: POTASSIUM CHLORIDE 20 MEQ/15 ML UDC 40 MEQ PO (09:02)
[2017-11-27] MEDS: levoFLOXacin 500 MG/100 ML PIGGYBACK 100 MG IV (12:56)
[2017-11-27] MEDS: HYDROMORPHONE 1 MG INJ IV (13:16)
[2017-11-27] MEDS: DEXTROSE 5%-0.9% NS 1,000 ML 100 ML IV (14:46)
[2017-11-27] MEDS: GABAPENTIN 300 MG CAPSULE 900 MG PO ×2 (15:55→21:07)
[2017-11-27] MEDS: ACETAMINOPHEN 325 MG TABLET 650 MG PO (15:56)
[2017-11-27] MEDS: CEFTRIAXONE 2 GM/50 ML FROZ.PIGGY IV (16:02)
--- NOTE | 2017-11-27 16:03 | P.HP_ITS ---
History of Present Illness Date Patient Seen: 11/27/17 Time Patient Seen: 15:59 Chief complaint: Pyelonephritis, blood bacterial culture positive Narrative: 42-year-old female with chronic back pain chronic pain issues presents with fever chills and worsening pain. She relates that she had her spinal stimulator removed back in May [facility] she has been on gabapentin since then she ran out a few weeks ago because he was taking more than usual because of increased pain. She also admits to taking some methadone that she had left over. She denies any cough or respiratory symptoms she denies any burning with urination but she complains of abdominal pain complains of worsening abdominal pain when she eats something. She has had a previous cholecystectomy. Patient History Medical History Alcohol abuse (Chronic) Chronic back pain (Chronic) Opioid abuse (Chronic) Family & Social History Social History: household members significant other,friend(s) Prior Living Arrangements House Safety & Behavioral: Feels Safe in Current Yes Environment Been Physically Hurt or No Threatened By a Person Suicidal Ideation Description None Suicide Plan Description No Plan Tobacco & Substance use: Tobacco type cigarettes,cannabis/marijuana Smoking Status Current some day smoker alcohol intake current alcohol intake frequency holiday/special occasion Substance Use Type marijuana Meds Home Medications Medication Instructions Recorded Confirmed Type ciprofloxacin HCl [Cipro] 500 mg PO BID #20 tab 11/26/17 11/27/17 Rx gabapentin 900 mg PO TID 11/27/17 11/27/17 History Allergies Allergy/AdvReac Type Severity Reaction Status Date / Time ketamine Allergy Verified 11/26/17 17:34 Review of Systems Review of Systems All systems reviewed & are unremarkable except as noted in HPI and below Exam Vital Signs (past 8 hours): Vital Signs - 8 hr 3 11/27/17 08:00 11/27/17 08:16 11/27/17 08:55 Temperature 99 F 99 F Pulse Rate 73 Respiratory Rate Blood Pressure Blood Pressure [Left Arm] 89/60 L Pulse Oximetry 97 3 11/27/17 08:57 11/27/17 09:00 11/27/17 10:00 Temperature 99 F Pulse Rate 68 70 Respiratory Rate Blood Pressure Blood Pressure [Left Arm] 103/63 94/60 Pulse Oximetry 96 94 3 11/27/17 10:17 11/27/17 11:24 11/27/17 12:46 Temperature 99 F Pulse Rate 70 74 Respiratory Rate 12 15 Blood Pressure Blood Pressure [Left Arm] 97/54 L 93/63 Pulse Oximetry 100 100 3 11/27/17 13:09 11/27/17 14:07 11/27/17 14:27 Temperature 98.1 F Pulse Rate 71 71 Respiratory Rate 15 15 Blood Pressure 109/67 Blood Pressure [Left Arm] 109/67 Pulse Oximetry 100 99 3 11/27/17 14:30 11/27/17 15:09 Temperature 96.3 F L 96.3 F L Pulse Rate 73 73 Respiratory Rate 18 18 Blood Pressure 131/88 H 131/88 H Blood Pressure [Left Arm] Pulse Oximetry 100 100 Pulse Oximetry 100 Oxygen Delivery Method Room Air Oxygen Flow Rate 0 Narrative Exam Narrative: She is quite anxious and emotionally labile. Initially she was weeping and writing in pain and is I talked with her about her history she did not seem like she was in pain anymore and no more tearful talk. HEENT exam unremarkable Lungs are clear Heart regular rhythm Abdomen is soft she has tenderness to palpation in the left upper quadrant bowel sounds present no masses she does have on the left flank evidence of the surgery with a spinal stimulator has been removed there is no sign of any infection there Lower extremities no edema Objective Labs Result Diagrams: 11/27/17 06:33 11/27/17 06:33 Labs: Laboratory Results - last 24 hr 11/26/17 11/26/17 11/26/17 17:25 18:11 18:15 WBC 13.1 H RBC 4.01 Hgb 13.9 Hct 39.6 MCV 98.6 MCH 34.5 H MCHC 35.1 RDW 12.7 Plt Count 192 Neut % (Auto) 83.4 H Lymph % (Auto) 6.7 L [place] % (Auto) 9.6 Eos % (Auto) 0.1 L Baso % (Auto) 0.2 Neut # (Auto) 15633 H ESR Sodium Potassium Chloride Carbon Dioxide BUN Creatinine Estimated GFR BUN/Creatinine Ratio Glucose Lactate Calcium Total Bilirubin AST ALT Alkaline Phosphatase C-Reactive Protein Total Protein Albumin Globulin Albumin/Globulin Ratio Lipase Procalcitonin Serum , Qual Negative Urine Color Urine Appearance Urine pH Ur Specific [place] Urine Protein Urine Glucose (UA) Urine Ketones Urine Occult Blood Urine Nitrate Urine Bilirubin Urine Urobilinogen Ur Leukocyte Esterase Urine RBC Urine WBC Ur Squamous Epith Cells Urine Bacteria Ur Culture Indicated? Micro UA Comment Urine Opiates Screen Ur Oxycodone Screen Urine Methadone Screen Ur Barbiturates Screen U Tricyclic Antidepress Ur Phencyclidine Scrn Ur Amphetamines Screen U Methamphetamines Scrn Ur MDMA Scrn (Ecstasy) U Benzodiazepines Scrn Urine Cocaine Screen U Marijuana (THC) Screen A. baumannii (PCR) Mariana albicans (PCR) C. glabrata (PCR) C. krusei (PCR) C. parapsilosis (PCR) C. tropicalis (PCR) Enterobacteriac sp PCR E. cloacae complex PCR Enterococcus sp PCR E. coli (PCR) H. influenzae (PCR) Klebsiella oxytoca PCR Klebsiella pneumoniae List. monocytogenes PCR N. meningitidis (PCR) Proteus species (PCR) Serratia marcescens PCR Staphylococcus sp PCR Staph aureus (PCR) mecA-Methicil Res Gene Streptococcus sp PCR Group A Strep (PCR) Strep agalactiae (PCR) Strep pneumoniae (PCR) P. aeruginosa (PCR) Shan/B-Vanco Res Genes KPC-Carbap Res Gene PCR Blood Type A Positive Antibody Screen Negative 11/26/17 11/26/17 11/26/17 18:15 18:15 18:15 WBC RBC Hgb Hct MCV MCH MCHC RDW Plt Count Neut % (Auto) Lymph % (Auto) [place] % (Auto) Eos % (Auto) Baso % (Auto) Neut # (Auto) ESR Sodium 134 L Potassium 3.3 L Chloride 97 L Carbon Dioxide 26 BUN 11 Creatinine 0.50 L Estimated GFR > 60.0 BUN/Creatinine Ratio 22.0 Glucose 92 Lactate 1.0 Calcium 8.5 Total Bilirubin 1.2 AST 193 H ALT 171 H Alkaline Phosphatase 362 H C-Reactive Protein Total Protein 6.9 Albumin 4.0 Globulin 2.9 Albumin/Globulin Ratio 1.4 Lipase 122 Procalcitonin Serum , Qual Urine Color Urine Appearance Urine pH Ur Specific [place] Urine Protein Urine Glucose (UA) Urine Ketones Urine Occult Blood Urine Nitrate Urine Bilirubin Urine Urobilinogen Ur Leukocyte Esterase Urine RBC Urine WBC Ur Squamous Epith Cells Urine Bacteria Ur Culture Indicated? Micro UA Comment Urine Opiates Screen Ur Oxycodone Screen Urine Methadone Screen Ur Barbiturates Screen U Tricyclic Antidepress Ur Phencyclidine Scrn Ur Amphetamines Screen U Methamphetamines Scrn Ur MDMA Scrn (Ecstasy) U Benzodiazepines Scrn Urine Cocaine Screen U Marijuana (THC) Screen A. baumannii (PCR) Mariana albicans (PCR) C. glabrata (PCR) C. krusei (PCR) C. parapsilosis (PCR) C. tropicalis (PCR) Enterobacteriac sp PCR E. cloacae complex PCR Enterococcus sp PCR E. coli (PCR) H. influenzae (PCR) Klebsiella oxytoca PCR Klebsiella pneumoniae List. monocytogenes PCR N. meningitidis (PCR) Proteus species (PCR) Serratia marcescens PCR Staphylococcus sp PCR Staph aureus (PCR) mecA-Methicil Res Gene Streptococcus sp PCR Group A Strep (PCR) Strep agalactiae (PCR) Strep pneumoniae (PCR) P. aeruginosa (PCR) Shan/B-Vanco Res Genes KPC-Carbap Res Gene PCR Blood Type Antibody Screen 11/26/17 11/26/17 11/26/17 18:15 18:15 18:15 WBC RBC Hgb Hct MCV MCH MCHC RDW Plt Count Neut % (Auto) Lymph % (Auto) [place] % (Auto) Eos % (Auto) Baso % (Auto) Neut # (Auto) ESR 18 Sodium Potassium Chloride Carbon Dioxide BUN Creatinine Estimated GFR BUN/Creatinine Ratio Glucose Lactate Calcium Total Bilirubin AST ALT Alkaline Phosphatase C-Reactive Protein 5.3 H Total Protein Albumin Globulin Albumin/Globulin Ratio Lipase Procalcitonin Serum , Qual Urine Color Urine Appearance Urine pH Ur Specific [place] Urine Protein Urine Glucose (UA) Urine Ketones Urine Occult Blood Urine Nitrate Urine Bilirubin Urine Urobilinogen Ur Leukocyte Esterase Urine RBC Urine WBC Ur Squamous Epith Cells Urine Bacteria Ur Culture Indicated? Micro UA Comment Urine Opiates Screen Ur Oxycodone Screen Urine Methadone Screen Ur Barbiturates Screen U Tricyclic Antidepress Ur Phencyclidine Scrn Ur Amphetamines Screen U Methamphetamines Scrn Ur MDMA Scrn (Ecstasy) U Benzodiazepines Scrn Urine Cocaine Screen U Marijuana (THC) Screen A. baumannii (PCR) Not detected Mariana albicans (PCR) Not detected C. glabrata (PCR) Not detected C. krusei (PCR) Not detected C. parapsilosis (PCR) Not detected C. tropicalis (PCR) Not detected Enterobacteriac sp PCR Detected H E. cloacae complex PCR Not detected Enterococcus sp PCR Not detected E. coli (PCR) Detected H H. influenzae (PCR) Not detected Klebsiella oxytoca PCR Not detected Klebsiella pneumoniae Not detected List. monocytogenes PCR Not detected N. meningitidis (PCR) Not detected Proteus species (PCR) Not detected Serratia marcescens PCR Not detected Staphylococcus sp PCR Not detected Staph aureus (PCR) Not detected mecA-Methicil Res Gene Not Reportable Streptococcus sp PCR Not detected Group A Strep (PCR) Not detected Strep agalactiae (PCR) Not detected Strep pneumoniae (PCR) Not detected P. aeruginosa (PCR) Not detected Shan/B-Vanco Res Genes Not Reportable KPC-Carbap Res Gene PCR Not detected Blood Type Antibody Screen 11/26/17 11/26/17 11/26/17 18:28 20:35 20:35 WBC RBC Hgb Hct MCV MCH MCHC RDW Plt Count Neut % (Auto) Lymph % (Auto) [place] % (Auto) Eos % (Auto) Baso % (Auto) Neut # (Auto) ESR Sodium Potassium Chloride Carbon Dioxide BUN Creatinine Estimated GFR BUN/Creatinine Ratio Glucose Lactate TNP Calcium Total Bilirubin AST ALT Alkaline Phosphatase C-Reactive Protein Total Protein Albumin Globulin Albumin/Globulin Ratio Lipase Procalcitonin Serum , Qual Urine Color Yellow Urine Appearance Clear Urine pH 6.5 Ur Specific [place] <=1.005 Urine Protein Trace H Urine Glucose (UA) Negative Urine Ketones 1+ H Urine Occult Blood 2+ H Urine Nitrate Positive H Urine Bilirubin Negative Urine Urobilinogen 0.2 Ur Leukocyte Esterase 1+ H Urine RBC 0-1/hpf Urine WBC 5-10/hpf H Ur Squamous Epith Cells 0-1 /hpf Urine Bacteria Occasional (0-1) Ur Culture Indicated? Specimen cultured Micro UA Comment Not Reportable Urine Opiates Screen Negative Ur Oxycodone Screen Negative Urine Methadone Screen Positive H Ur Barbiturates Screen Negative U Tricyclic Antidepress Negative Ur Phencyclidine Scrn Negative Ur Amphetamines Screen Negative U Methamphetamines Scrn Negative Ur MDMA Scrn (Ecstasy) Negative U Benzodiazepines Scrn Negative Urine Cocaine Screen Negative U Marijuana (THC) Screen Positive H A. baumannii (PCR) Mariana albicans (PCR) C. glabrata (PCR) C. krusei (PCR) C. parapsilosis (PCR) C. tropicalis (PCR) Enterobacteriac sp PCR E. cloacae complex PCR Enterococcus sp PCR E. coli (PCR) H. influenzae (PCR) Klebsiella oxytoca PCR Klebsiella pneumoniae List. monocytogenes PCR N. meningitidis (PCR) Proteus species (PCR) Serratia marcescens PCR Staphylococcus sp PCR Staph aureus (PCR) mecA-Methicil Res Gene Streptococcus sp PCR Group A Strep (PCR) Strep agalactiae (PCR) Strep pneumoniae (PCR) P. aeruginosa (PCR) Shan/B-Vanco Res Genes KPC-Carbap Res Gene PCR Blood Type Antibody Screen 11/27/17 11/27/17 11/27/17 06:33 06:33 06:33 WBC 11.8 H RBC 3.53 L Hgb 12.4 Hct 35.2 L MCV 99.9 MCH 35.0 H MCHC 35.1 RDW 13.0 Plt Count 149 L Neut % (Auto) 83.2 H Lymph % (Auto) 8.6 L [place] % (Auto) 7.9 Eos % (Auto) 0.1 L Baso % (Auto) 0.2 Neut # (Auto) 9800 H ESR Sodium 135 L Potassium 3.0 L Chloride 100 Carbon Dioxide 26 BUN 7 Creatinine 0.60 Estimated GFR > 60.0 BUN/Creatinine Ratio 11.7 Glucose 99 Lactate Calcium 7.6 L Total Bilirubin AST ALT Alkaline Phosphatase C-Reactive Protein Total Protein Albumin Globulin Albumin/Globulin Ratio Lipase Procalcitonin 0.17 Serum , Qual Urine Color Urine Appearance Urine pH Ur Specific [place] Urine Protein Urine Glucose (UA) Urine Ketones Urine Occult Blood Urine Nitrate Urine Bilirubin Urine Urobilinogen Ur Leukocyte Esterase Urine RBC Urine WBC Ur Squamous Epith Cells Urine Bacteria Ur Culture Indicated? Micro UA Comment Urine Opiates Screen Ur Oxycodone Screen Urine Methadone Screen Ur Barbiturates Screen U Tricyclic Antidepress Ur Phencyclidine Scrn Ur Amphetamines Screen U Methamphetamines Scrn Ur MDMA Scrn (Ecstasy) U Benzodiazepines Scrn Urine Cocaine Screen U Marijuana (THC) Screen A. baumannii (PCR) Mariana albicans (PCR) C. glabrata (PCR) C. krusei (PCR) C. parapsilosis (PCR) C. tropicalis (PCR) Enterobacteriac sp PCR E. cloacae complex PCR Enterococcus sp PCR E. coli (PCR) H. influenzae (PCR) Klebsiella oxytoca PCR Klebsiella pneumoniae List. monocytogenes PCR N. meningitidis (PCR) Proteus species (PCR) Serratia marcescens PCR Staphylococcus sp PCR Staph aureus (PCR) mecA-Methicil Res Gene Streptococcus sp PCR Group A Strep (PCR) Strep agalactiae (PCR) Strep pneumoniae (PCR) P. aeruginosa (PCR) Shan/B-Vanco Res Genes KPC-Carbap Res Gene PCR Blood Type Antibody Screen 11/27/17 06:33 WBC RBC Hgb Hct MCV MCH MCHC RDW Plt Count Neut % (Auto) Lymph % (Auto) [place] % (Auto) Eos % (Auto) Baso % (Auto) Neut # (Auto) ESR Sodium Potassium Chloride Carbon Dioxide BUN Creatinine Estimated GFR BUN/Creatinine Ratio Glucose Lactate 0.6 L Calcium Total Bilirubin AST ALT Alkaline Phosphatase C-Reactive Protein Total Protein Albumin Globulin Albumin/Globulin Ratio Lipase Procalcitonin Serum , Qual Urine Color Urine Appearance Urine pH Ur Specific [place] Urine Protein Urine Glucose (UA) Urine Ketones Urine Occult Blood Urine Nitrate Urine Bilirubin Urine Urobilinogen Ur Leukocyte Esterase Urine RBC Urine WBC Ur Squamous Epith Cells Urine Bacteria Ur Culture Indicated? Micro UA Comment Urine Opiates Screen Ur Oxycodone Screen Urine Methadone Screen Ur Barbiturates Screen U Tricyclic Antidepress Ur Phencyclidine Scrn Ur Amphetamines Screen U Methamphetamines Scrn Ur MDMA Scrn (Ecstasy) U Benzodiazepines Scrn Urine Cocaine Screen U Marijuana (THC) Screen A. baumannii (PCR) Mariana albicans (PCR) C. glabrata (PCR) C. krusei (PCR) C. parapsilosis (PCR) C. tropicalis (PCR) Enterobacteriac sp PCR E. cloacae complex PCR Enterococcus sp PCR E. coli (PCR) H. influenzae (PCR) Klebsiella oxytoca PCR Klebsiella pneumoniae List. monocytogenes PCR N. meningitidis (PCR) Proteus species (PCR) Serratia marcescens PCR Staphylococcus sp PCR Staph aureus (PCR) mecA-Methicil Res Gene Streptococcus sp PCR Group A Strep (PCR) Strep agalactiae (PCR) Strep pneumoniae (PCR) P. aeruginosa (PCR) Shan/B-Vanco Res Genes KPC-Carbap Res Gene PCR Blood Type Antibody Screen Assessment & Plan Plan: Assessment/Plan Narrative: One. Urinary tract infection possible pyelonephritis fever blood culture positive for E coli plan to place her on IV antibiotics and treat this with fluids and IV antibiotics initially. 2. Severe back pain flank pain initially we treat her with Toradol and as needed hydromorphone. Plan to resume her gabapentin 3. Hypokalemia plan to place her on some IV potassium 4. Anemia mild plan to recheck in the morning 5. Abdominal pain uncertain etiology CT scan was unremarkable 6. Elevated liver enzymes plan to check hepatitis C antibody Quality VTE Deep Vein Thrombosis/Pulmonary Embolism Present on Admission: No
[2017-11-27] MEDS: DEXTROSE 5%-0.45% NS 1,000 ML 100 ML IV (16:04)
[2017-11-27 16:15] LABS: Magnesium 1.6 mg/dL (1.6-2.3)
[2017-11-27 17:21] LABS: Hep C Virus Ab w/Reflex Quant NEGATIVE s/c (NEGATIVE)
[2017-11-27] MEDS: KETOROLAC 30 MG/ML VIAL IV (18:09)
[2017-11-27] MEDS: HYDROMORPHONE 2 MG INJ 1 MG IV (18:10)
[2017-11-27] MEDS: POTASSIUM CHLORIDE 20 MEQ TAB 80 MEQ PO (21:05)
[2017-11-27] MEDS: CYCLOBENZAPRINE 10 MG TABLET PO (21:06)
[2017-11-27] MEDS: PANTOPRAZOLE 40 MG VIAL IV (21:13)
[2017-11-28] VITALS (11 sets, daily range): BP systolic 101–158; BP diastolic 59–96; PULSE 70–106; RESP 16–18; TEMP 36.1–38.2; O2SAT 96–100; BMI 22.0
[2017-11-28] MEDS: HYDROMORPHONE 2 MG INJ 1 MG IV ×2 (00:39→05:21)
[2017-11-28] MEDS: KETOROLAC 30 MG/ML VIAL IV ×5 (00:39→23:49)
[2017-11-28] MEDS: OXYCODONE/ACETAMINOPHEN 5/325 TABLET 2 TAB PO ×5 (03:22→20:43)
--- NOTE | 2017-11-28 03:36 | PC.NURSE ---
Rotary Engine Assembler Note: 0300: Pt having continued pain, unresolved by Dilaudid and Toradol. Dr. Salmon notified by phone of unresolving pain. Order for Percocet received.
[2017-11-28] MEDS: CYCLOBENZAPRINE 10 MG TABLET PO ×2 (06:21→18:59)
[2017-11-28 06:45] LABS: Alanine Aminotransferase 196 IU/L (9-52); Albumin 3.3 g/dL (3.5-5.0); Albumin Globulin Ratio 1.2 (1.0-2.8); Alkaline Phosphatase 337 U/L (38-126); Aspartate Aminotransferase 142 IU/L (14-36); Bilirubin Total 0.8 mg/dL (0.2-1.3); Blood Urea Nitrogen 3 mg/dL (7-17); Calcium 8.5 mg/dL (8.4-10.2); Carbon Dioxide 27 mmol/L (22-32); Chloride 105 mmol/L (98-107); Estimated Glomerular Filt Rate > 60.0 mL/min (>60); Globulin 2.7 g/dL (1.7-4.1); Glucose 114 mg/dL (70-100); HEMOLYSIS < 15 (0-50); Potassium 4.5 mmol/L (3.4-5.1); Sodium 139 mmol/L (137-145)
[2017-11-28 06:58] LABS: Add Manual Diff / Slide Review NO; Basophils Percent Auto 0.2 % (0-2); Eosinophils Percent Auto 0.4 % (2-4); Hematocrit 37.7 % (36-46); Hemoglobin 12.8 g/dL (12.0-16.0); Lymphocytes Percent Auto 13.6 % (25-40); Mean Corpuscular HGB Conc 33.9 % (30-36); Mean Corpuscular Hemoglobin 34.3 PG (26-34); Mean Corpuscular Volume 101.1 fL (80-100); Monocytes Percent Auto 11.3 % (3-14); Neutrophils Absolute Auto 6100 /uL (3000-5900); Neutrophils Percent Auto 74.5 % (50-75); Platelet Count 153 X10^3/uL (150-400); Red Blood Cell Count 3.73 X10^6/uL (4.0-5.2); Red Cell Distribution Width 13.2 % (11.6-14.8); White Blood Cell Count 8.2 X10^3/uL (4.5-11.0)
[2017-11-28] MEDS: GABAPENTIN 300 MG CAPSULE 900 MG PO ×3 (09:05→21:13)
[2017-11-28] MEDS: PANTOPRAZOLE 40 MG VIAL IV ×2 (09:07→21:13)
[2017-11-28] MEDS: ACETAMINOPHEN 325 MG TABLET 650 MG PO (09:09)
--- NOTE | 2017-11-28 09:53 | PC.NURSE ---
0987 Pt left the floor ambulatory with spouse, Pt informed of the policy of Not leaving the acute care floor. Pt signed form to take complete responsibility for self while of the floor.
--- NOTE | 2017-11-28 09:59 | PC.NURSE ---
Called to room by Lilliam LEWIS, Pt's Nurse, to discuss policy with Pt regarding being off the floor. Pt adamant about leaving floor to get fresh air stating to get out of this claustrophobic room. Pt understands the rules , but is forceful about leaving the floor. Verena was made aware of situation. Pt was asked to sign Temporary absence form stating she takes full responsibility for her self as does her . Pt signed form. Pt walking with steady gait with at her side.
--- NOTE | 2017-11-28 10:28 | PC.NURSE ---
1015 Pt returned ambulatory with IV infusing to room 216 with spouse.
[2017-11-28] MEDS: DEXTROSE 5%-0.45% NS 1,000 ML 100 ML IV (12:17)
--- NOTE | 2017-11-28 14:54 | CM.DANOTE ---
Addendum entered by NADIA Loredo 11/28/17 15:02: Received VM from TIFFANI Hernandez w/ [facility] P#[phone], requesting a call if pt has any DC needs. Transport, DME and meds go through [place]. Original Note: DCP Assessment: Pt is a 42 yo female, resident of [place]. Pt admitted for UTI and possible pyelonephritis. Pt's PCP is not listed. Pt is a and has [employer] insurance. Pt lives w/spouse and her roommates/friends. She is active and mostly indp at baseline; pt has chronic back pain and uses a spinal nerve stimulator. Pt quite anxious and emotionally labile. Pt indp in/out of and pt has been demanding to leave her room to go outside. RN Coordinator and Professional Benefits Sales Consultant aware. Pt will likely be here for continued medical management until medically cleared for DC home. No barriers expected to pt's DC home w/spouse. Following closely. NADIA Loredo
--- NOTE | 2017-11-28 15:17 | P.PN_ITS ---
Subjective Date Patient Seen: 11/28/17 Time Patient Seen: 15:14 Interval history: Less complaints of pain today Exam Vital Signs (past 8 hours): Vital Signs - 8 hr 3 11/28/17 08:51 11/28/17 12:00 Temperature 97.8 F 97.9 F Pulse Rate 78 70 Respiratory Rate 18 18 Blood Pressure 123/66 H 132/64 H Pulse Oximetry 100 99 Pulse Oximetry 99 Oxygen Delivery Method Room Air Oxygen Flow Rate 0 Narrative Exam Narrative: Resting comfortably HEENT exam unremarkable Lungs clear Heart regular rhythm Abdomen soft and nontender Neuro exam awake alert no focal deficits Skin warm and dry Objective Labs Result Diagrams: 11/28/17 06:04 11/28/17 06:04 Labs: Laboratory Results - last 24 hr 11/27/17 11/27/17 11/28/17 06:33 06:33 06:04 WBC RBC Hgb Hct MCV MCH MCHC RDW Plt Count Neut % (Auto) Lymph % (Auto) [place] % (Auto) Eos % (Auto) Baso % (Auto) Neut # (Auto) Sodium 139 Potassium 4.5 D Chloride 105 Carbon Dioxide 27 BUN 3 L Creatinine 0.50 L Estimated GFR > 60.0 BUN/Creatinine Ratio 6.0 Glucose 114 H Calcium 8.5 Magnesium 1.6 Total Bilirubin 0.8 AST 142 H ALT 196 H Alkaline Phosphatase 337 H Total Protein 6.0 L Albumin 3.3 L Globulin 2.7 Albumin/Globulin Ratio 1.2 Hepatitis C Antibody Negative 11/28/17 06:04 WBC 8.2 RBC 3.73 L Hgb 12.8 Hct 37.7 MCV 101.1 H MCH 34.3 H MCHC 33.9 RDW 13.2 Plt Count 153 Neut % (Auto) 74.5 Lymph % (Auto) 13.6 L [place] % (Auto) 11.3 Eos % (Auto) 0.4 L Baso % (Auto) 0.2 Neut # (Auto) 6100 H Sodium Potassium Chloride Carbon Dioxide BUN Creatinine Estimated GFR BUN/Creatinine Ratio Glucose Calcium Magnesium Total Bilirubin AST ALT Alkaline Phosphatase Total Protein Albumin Globulin Albumin/Globulin Ratio Hepatitis C Antibody Assessment & Plan Plan: Assessment/Plan Narrative: One. Urinary tract infection possible pyelonephritis fever blood culture positive for E coli she seems to be responding clinically plan to continue IV antibiotics for another 24 hr and then possible discharge home on 2. Severe back pain flank pain initially we treat her with Toradol and as needed hydromorphone. Plan to resume her gabapentin 3. Hypokalemia resolved 4. Anemia mild hematocrit 37 this morning 5. Abdominal pain uncertain etiology CT scan was unremarkable 6. Elevated liver enzymes hepatitis-C was negative. Liver enzymes remain elevated probably needs further workup as an outpatient Quality VTE Deep Vein Thrombosis/Pulmonary Embolism Present on Admission: No
[2017-11-28] MEDS: CEFTRIAXONE 2 GM/50 ML FROZ.PIGGY IV (15:59)
--- NOTE | 2017-11-28 22:28 | PC.NURSE ---
Pt left floor from 1817 to 1843 with significant other and children to walk them to the car and get fresh air. Pt was steady on her feet and signed the temporary absence release form. Pt continues to be adament about getting her needs met and is impulsive at times with care. Tarah, RN at change of shift able to insert a midline into LUE, continues to flush fine without pt c/o of pain. Pt calling appropriately and able to make needs met to staff.
[2017-11-28] MEDS: SODIUM CHLORIDE 0.9% FLUSH 10 ML IV (23:50)
[2017-11-29] MEDS: HYDROMORPHONE 2 MG INJ 1 MG IV (01:14)
[2017-11-29] MEDS: SODIUM CHLORIDE 0.9% FLUSH 10 ML IV ×3 (01:15→09:15)
--- NOTE | 2017-11-29 01:46 | PC.NURSE ---
Addendum entered by Kacey Sunshine R.N. 11/29/17 05:35: Patient asleep at 0330 when Percocet was due so not awakened. Now states pain is 8/10 so medicated with Percocet as well as scheduled Toradol. Declined either heat or ice pack for additional relief. Original Note: Addendum entered by Kacey Sunshine R.N. 11/29/17 03:07: Medicated with Flexeril for continued complaint of pain. Original Note: Patient is alert and oriented. Breath sounds CTA but patient has hoarse sounding voice and intermittent harsh, non productive cough with RA sat of 98%. HRR. Denies nausea but states stomach is feeling a little upset so provided gingerale. BT present and abdomen is soft. Complaining of 8/10 lower left back pain radiating around to left lower abdomen. States pain is sharp, crampy and pulling. Unable to medicate with Percocet as patient would exceed the 4000mg allottment of Tylenol in past 24h. Patient very upset that she is unable to have Percocet and is too early for Flexeril as well. Agreeable to taking Dilaudid but states that doesn't work as well because it's not a strong enough dose. Did express understanding as to why Percocet cannot be given at this time. Independent with bed mobility. Denies dysuria, frequency, urgency or incontinence. Is up independent and appears steady on feet. Due to fall in past 3 months, patient does assess as being at high risk for falls but patient refuses to have bed alarm on. Security reported that at 2301 patient went out emergency courtyard door and then tried to get back in at 2306 but unable to do so since door locks behind. So she walked around to the hospital ER entry and came in through that door at 2313. Patient had told RN at 2300 that she was going down to the chapel to pray but when security checked the chapel at 2304 she was not in the chapel.
[2017-11-29] MEDS: CYCLOBENZAPRINE 10 MG TABLET PO ×2 (03:02→11:28)
[2017-11-29] MEDS: OXYCODONE/ACETAMINOPHEN 5/325 TABLET 2 TAB PO ×2 (05:14→09:13)
[2017-11-29] MEDS: KETOROLAC 30 MG/ML VIAL IV (05:20)
[2017-11-29 05:38] VITALS: BP 136/94; PULSE 97; RESP 18; TEMP 36.6; O2SAT 99
[2017-11-29 07:00] VITALS: O2SAT 98
[2017-11-29 08:07] VITALS: BP 148/78; PULSE 91; RESP 18; TEMP 36.9; O2SAT 99
[2017-11-29 08:37] VITALS: O2SAT 99
[2017-11-29] MEDS: PANTOPRAZOLE 40 MG VIAL IV (09:15)
[2017-11-29] MEDS: GABAPENTIN 300 MG CAPSULE 900 MG PO (09:15)
--- NOTE | 2017-11-29 10:14 | PM.DS.1 ---
History of Present Illness Date Patient Seen: 11/29/17 Time Patient Seen: 10:15 Chief complaint: Pyelonephritis, blood bacterial culture positive Narrative: 42-year-old female with chronic back pain chronic pain issues presents with fever chills and worsening pain. She relates that she had her spinal stimulator removed back in May she is followed by the SD she has been on gabapentin since then she ran out a few weeks ago because he was taking more than usual because of increased pain. She also admits to taking some methadone that she had left over. She denies any cough or respiratory symptoms she denies any burning with urination but she complains of abdominal pain complains of worsening abdominal pain when she eats something. She has had a previous cholecystectomy. Discharge Providers Date of admission: 11/27/17 14:02 Consults: 11/27/17 15:06 Consult to Dietitian, Adult Routine Comment: Reason For Exam: states she has lost weight and has not been eating Discharge provider: HANANE Ellis Summary Discharge Diagnosis: 1. Urinary tract infection possible pyelonephritis (Acute) 2. Severe back pain (Chronic) 3. Hypokalemia (acute) resolved 4. Left upper quadrant abdominal pain: Uncertain etiology Hospital Course: This is a summary of a 2 day hospitalization for this 42-year-old patient who came in initially with complaints of chronic back pain, abdominal pain, fever and chills. Blood and urine cultures were obtained and patient was started on Rocephin 2 g IV Q [address] showed no acute intra-abdominal findings. Normal appendix. There was mild intrahepatic ductal dilatation most likely related to prior cholecystectomy. There is L5-S3 spondylolysis and spondylolisthesis. Chest x-ray showed no acute cardiopulmonary findings. C-spine and L-spine findings as noted in objective portion of this summary. Her urine and blood cultures came back positive for E coli. Sensitive to Rocephin. She has remained afebrile for the past 24 hr. Her primary complaint at this time is continuation of her chronic back pain and flank pain that was treated with Toradol and occasional hydromorphone as an inpatient. Her toxicology screen came back positive for methadone and marijuana. She will be discharged on a 10 day course of ciprofloxacin, her home medication of gabapentin and as needed Flexeril and Percocet. She is to follow up with her primary care provider in 3-5 days for evaluation of chronic back pain, and elevated liver enzymes in the face of negative hepatitis-C. Status at Discharge Functional status at discharge: independent ambulation Overall status at discharge: patient is progressing back to baseline Time Spent with Patient Greater than 30 minutes Exam Vital Signs (past 8 hours): Vital Signs - 8 hr 11/29/17 05:38 11/29/17 07:00 11/29/17 08:07 Temperature 97.8 F 98.5 F Pulse Rate 97 H 91 H Respiratory Rate 18 18 Blood Pressure 136/94 H 148/78 H Pulse Oximetry 99 98 99 11/29/17 08:37 Temperature Pulse Rate Respiratory Rate Blood Pressure Pulse Oximetry 99 Pulse Oximetry 99 Oxygen Delivery Method Room Air Oxygen Flow Rate 0 Objective Labs Result Diagrams: 11/28/17 06:04 11/28/17 06:04 Labs: PROCEDURE: MR LUMBAR SPINE WO/W CON INDICATIONS: Fever with left sided low back pain TECHNIQUE: Noncontrast sagittal T1 spin echo and T2 fast spin echo, sagittal STIR, axial T1 and T2 fast spin echo through the lumbar spine. In cases with scoliosis, additional coronal T2 fast spin echo may be performed. After the administration of contrast, sagittal and axial T1 spin echo with fat saturation through the lumbar spine. COMPARISON: [facility], CT, CT LUMBAR SPINE W CON, 11/26/2017, 23:49. FINDINGS: Image quality: Excellent. Alignment and curvature: There is grade 1 L5-S1 isthmic spondylolisthesis which is stable compared to prior CT scan. Marrow: Marrow is of normal overall signal. No acute vertebral body compression fractures. No suspicious marrow enhancement. Spinal cord: Conus medullaris terminates at the L2 level. Visualized spinal cord demonstrates normal signal, without suspicious enhancement. Paraspinous soft tissues: No paravertebral masses or abnormal enhancement. L1-L2: Normal appearance. L2-L3: Normal appearance. L3-L4: Normal appearance. L4-L5: Normal appearance. L5-S1: Loss of disc signal. Minimal, diffuse disc bulge. No central stenosis. Severe left and moderate right neural foraminal narrowing secondary to disc disease and isthmic spondylolisthesis with flexion deformity exiting left L5 nerve root. IMPRESSION: 1. Grade 1 L5-S1 isthmic spondylolisthesis. 2. Mild L5-S1 degenerative disc disease. 3. No central stenosis. 4. Moderate right and severe left L5-S1 neural foraminal narrowing. 5. Flattened deformity exiting left L5 nerve root secondary to neural foraminal narrowing. Please correlate with clinical data. 6. No epidural or paraspinous abscess. Dictated by: Daria Stanley MD, PhD on 11/27/2017 at 8:08 Approved by: Daria Stanley MD, PhD on 11/27/2017 at 8:12 PROCEDURE: MR THORACIC SPINE WO/W CON INDICATIONS: Fever. Lower left sided back pain TECHNIQUE: Noncontrast sagittal T1 spin echo and T2 fast spin echo, sagittal STIR, axial T1 and T2 fast spin echo through the thoracic spine. After the administration of contrast, axial and sagittal T1 spin echo with fat saturation through the thoracic spine. COMPARISON: [facility], CT, CT THORACIC SPINE W CON, 11/26/2017, 23:49. FINDINGS: Image quality: Excellent. Alignment and curvature: There is normal bony alignment. Marrow: Marrow is of normal overall signal. No acute vertebral body compression fractures. Spinal cord: Visualized spinal cord is of normal signal and size, without abnormal enhancement. Paraspinous soft tissues: No paravertebral masses or abnormal enhancement. Miscellaneous: Mild multilevel degenerative disc changes are noted in the mid thoracic spine. Central canal and foramina appear widely patent at all scanned levels. IMPRESSION: 1. No epidural or paraspinous abscess. 2. No evidence of osteomyelitis-discitis. 3. No central stenosis. 4. No neural foraminal narrowing. 5. No neural impingement. Dictated by: Daria Stanley MD, PhD on 11/27/2017 at 8:14 Approved by: Daria Stanley MD, PhD on 11/27/2017 at 8:26 Discharge Plan Discharge Plan Patient Disposition: Home, Self-Care Provider Discharge Instructions Diet comment: Heart healthy/cardiac diet. Activity: As tolerated Oxygen: Room air Discharge Data Attending Provider: Som Burton Admit Date/Time: 11/27/17 14:02 Quality VTE Deep Vein Thrombosis/Pulmonary Embolism Present on Admission: No
--- NOTE | 2017-11-29 10:28 | P.DS_ITS ---
History of Present Illness Date Patient Seen: 11/29/17 Time Patient Seen: 10:15 Chief complaint: Pyelonephritis, blood bacterial culture positive Narrative: 42-year-old female with chronic back pain chronic pain issues presents with fever chills and worsening pain. She relates that she had her spinal stimulator removed back in May she is followed by the [facility] she has been on gabapentin since then she ran out a few weeks ago because he was taking more than usual because of increased pain. She also admits to taking some methadone that she had left over. She denies any cough or respiratory symptoms she denies any burning with urination but she complains of abdominal pain complains of worsening abdominal pain when she eats something. She has had a previous cholecystectomy. Discharge Providers Date of admission: 11/27/17 14:02 Consults: 11/27/17 15:06 Consult to Dietitian, Adult Routine Comment: Reason For Exam: states she has lost weight and has not been eating Discharge provider: HANANE Ellis Summary Discharge Diagnosis: 1. Urinary tract infection possible pyelonephritis (Acute) 2. Severe back pain (Chronic) 3. Hypokalemia (acute) resolved 4. Left upper quadrant abdominal pain: Uncertain etiology Hospital Course: This is a summary of a 2 day hospitalization for this 42-year- old patient who came in initially with complaints of chronic back pain, abdominal pain, fever and chills. Blood and urine cultures were obtained and patient was started on Rocephin 2 g IV Q [address] showed no acute intra-abdominal findings. Normal appendix. There was mild intrahepatic ductal dilatation most likely related to prior cholecystectomy. There is L5-S3 spondylolysis and spondylolisthesis. Chest x-ray showed no acute cardiopulmonary findings. C-spine and L-spine findings as noted in objective portion of this summary. Her urine and blood cultures came back positive for E coli. Sensitive to Rocephin. She has remained afebrile for the past 24 hr. Her primary complaint at this time is continuation of her chronic back pain and flank pain that was treated with Toradol and occasional hydromorphone as an inpatient. Her toxicology screen came back positive for methadone and marijuana. She will be discharged on a 10 day course of ciprofloxacin, her home medication of gabapentin and as needed Flexeril and Percocet. She is to follow up with her primary care provider in 3-5 days for evaluation of chronic back pain, and elevated liver enzymes in the face of negative hepatitis-C. Status at Discharge Functional status at discharge: independent ambulation Overall status at discharge: patient is progressing back to baseline Time Spent with Patient Greater than 30 minutes Exam Vital Signs (past 8 hours): Vital Signs - 8 hr 3 11/29/17 05:38 11/29/17 07:00 11/29/17 08:07 Temperature 97.8 F 98.5 F Pulse Rate 97 H 91 H Respiratory Rate 18 18 Blood Pressure 136/94 H 148/78 H Pulse Oximetry 99 98 99 3 11/29/17 08:37 Temperature Pulse Rate Respiratory Rate Blood Pressure Pulse Oximetry 99 Pulse Oximetry 99 Oxygen Delivery Method Room Air Oxygen Flow Rate 0 Objective Labs Result Diagrams: 11/28/17 06:04 11/28/17 06:04 Labs: PROCEDURE: MR LUMBAR SPINE WO/W CON INDICATIONS: Fever with left sided low back pain TECHNIQUE: Noncontrast sagittal T1 spin echo and T2 fast spin echo, sagittal STIR, axial T1 and T2 fast spin echo through the lumbar spine. In cases with scoliosis, additional coronal T2 fast spin echo may be performed. After the administration of contrast, sagittal and axial T1 spin echo with fat saturation through the lumbar spine. COMPARISON: [facility], CT, CT LUMBAR SPINE W CON, 11/26/2017, 23:49. FINDINGS: Image quality: Excellent. Alignment and curvature: There is grade 1 L5-S1 isthmic spondylolisthesis which is stable compared to prior CT scan. Marrow: Marrow is of normal overall signal. No acute vertebral body compression fractures. No suspicious marrow enhancement. Spinal cord: Conus medullaris terminates at the L2 level. Visualized spinal cord demonstrates normal signal, without suspicious enhancement. Paraspinous soft tissues: No paravertebral masses or abnormal enhancement. L1-L2: Normal appearance. L2-L3: Normal appearance. L3-L4: Normal appearance. L4-L5: Normal appearance. L5-S1: Loss of disc signal. Minimal, diffuse disc bulge. No central stenosis. Severe left and moderate right neural foraminal narrowing secondary to disc disease and isthmic spondylolisthesis with flexion deformity exiting left L5 nerve root. IMPRESSION: 1. Grade 1 L5-S1 isthmic spondylolisthesis. 2. Mild L5-S1 degenerative disc disease. 3. No central stenosis. 4. Moderate right and severe left L5-S1 neural foraminal narrowing. 5. Flattened deformity exiting left L5 nerve root secondary to neural foraminal narrowing. Please correlate with clinical data. 6. No epidural or paraspinous abscess. Dictated by: Daria Stanley MD, PhD on 11/27/2017 at 8:08 Approved by: Daria Stanley MD, PhD on 11/27/2017 at 8:12 PROCEDURE: MR THORACIC SPINE WO/W CON INDICATIONS: Fever. Lower left sided back pain TECHNIQUE: Noncontrast sagittal T1 spin echo and T2 fast spin echo, sagittal STIR, axial T1 and T2 fast spin echo through the thoracic spine. After the administration of contrast , axial and sagittal T1 spin echo with fat saturation through the thoracic spine. COMPARISON: [facility], CT, CT THORACIC SPINE W CON, 11/26/2017, 23:49. FINDINGS: Image quality: Excellent. Alignment and curvature: There is normal bony alignment. Marrow: Marrow is of normal overall signal. No acute vertebral body compression fractures. Spinal cord: Visualized spinal cord is of normal signal and size, without abnormal enhancement. Paraspinous soft tissues: No paravertebral masses or abnormal enhancement. Miscellaneous: Mild multilevel degenerative disc changes are noted in the mid thoracic spine. Central canal and foramina appear widely patent at all scanned levels. IMPRESSION: 1. No epidural or paraspinous abscess. 2. No evidence of osteomyelitis-discitis. 3. No central stenosis. 4. No neural foraminal narrowing. 5. No neural impingement. Dictated by: Daria Stanley MD, PhD on 11/27/2017 at 8:14 Approved by: Daria Stanley MD, PhD on 11/27/2017 at 8:26 Discharge Plan Discharge Plan Patient Disposition: Home, Self-Care Provider Discharge Instructions Diet comment: Heart healthy/cardiac diet. Activity: As tolerated Oxygen: Room air Discharge Data Attending Provider: Som Burton Admit Date/Time: 11/27/17 14:02 Quality VTE Deep Vein Thrombosis/Pulmonary Embolism Present on Admission: No
--- NOTE | 2017-11-29 10:52 | CM.DPNOTE ---
DC Note: DC orders in place, pt expects no barriers to safe DC home w/spouse. Ambulating indp. Spouse to transport. [id number]
== END 2017-11-29 13:20 | disposition home or self-care (01) | DRG 690 ==
LOC: ED 11-27 13:47 → AC 11-27 14:04
PROVIDERS: Emergency Medicine; Admitting Provider Internal Medicine; Emergency Provider Emergency Medicine; Visit Provider Internal Medicine
DX: N10 Acute pyelonephritis (principal); B96.20 Unspecified Escherichia coli [E. coli] as the cause of diseases classified elsewhere; E87.6 Hypokalemia; D64.9 Anemia, unspecified; R10.12 Left upper quadrant pain
CPT/HCPCS: 36415; 71045; 72129; 72132; 72157; 72158; 74177; 80048; 80053; 80305; 81001; 83605; 83690; 83735; 84145; 84703; 85025; 85651; 86140; 86803; 86850; 86900; 86901; 87040; 87077; 87086; 87150; 87186; 87205; 93005; 93010; 96361; 96365; 96374; 96375; 96376; 99285; A9579; C9113; J0696; J0744; J1170; J1630; J1642; J1885; J1956; J2405; J2543; Q9967

== ENCOUNTER 2018-02-27 12:57 | Observation (INO) | payer OTHER, SELFPAY ==
[2017-11-27 14:54] VITALS: BMI 22.0
[2018-02-27] VITALS (10 sets, daily range): BP systolic 111–135; BP diastolic 60–74; PULSE 56–80; RESP 16–18; TEMP 36.4–36.8; O2SAT 97–100; BMI 20.7
[2018-02-27] MEDS: ONDANSETRON 4 MG/2 ML INJ IV ×4 (13:40→23:36)
[2018-02-27] MEDS: SODIUM CHLORIDE 0.9% 1,000 ML 1000 ML IV (13:40)
[2018-02-27 13:50] LABS: Add Manual Diff / Slide Review NO; Basophils Percent Auto 0.8 % (0-2); Eosinophils Percent Auto 0.8 % (2-4); Hematocrit 43.2 % (36-46); Hemoglobin 15.3 g/dL (12.0-16.0); Lymphocytes Percent Auto 30.4 % (25-40); Mean Corpuscular HGB Conc 35.4 % (30-36); Mean Corpuscular Hemoglobin 35.6 PG (26-34); Mean Corpuscular Volume 100.6 fL (80-100); Monocytes Percent Auto 7.3 % (3-14); Neutrophils Absolute Auto 4000 /uL (3000-5900); Neutrophils Percent Auto 60.7 % (50-75); Platelet Count 273 X10^3/uL (150-400); Red Blood Cell Count 4.29 X10^6/uL (4.0-5.2); Red Cell Distribution Width 13.3 % (11.6-14.8); White Blood Cell Count 6.7 X10^3/uL (4.5-11.0)
[2018-02-27 13:51] LABS: INR 1.2 (0.9-1.3); Prothrombin Time 13.2 SECONDS (10.1-12.7)
[2018-02-27 13:54] LABS: PTT Partial Thromboplastin Tim 29 SECONDS (26.4-36.2)
[2018-02-27 13:59] LABS: Alanine Aminotransferase 31 IU/L (9-52); Albumin 4.5 g/dL (3.5-5.0); Albumin Globulin Ratio 1.5 (1.0-2.8); Alkaline Phosphatase 91 U/L (38-126); Aspartate Aminotransferase 30 IU/L (14-36); Bilirubin Total 1.1 mg/dL (0.2-1.3); Blood Urea Nitrogen 12 mg/dL (7-17); Calcium 9.1 mg/dL (8.4-10.2); Carbon Dioxide 25 mmol/L (22-32); Chloride 106 mmol/L (98-107); Estimated Glomerular Filt Rate > 60.0 mL/min (>60); Glucose 94 mg/dL (70-100); HEMOLYSIS 21 (0-50); Lipase 119 U/L (23-300); Sodium 144 mmol/L (137-145); Total Protein 7.5 g/dL (6.3-8.2)
[2018-02-27 14:15] LABS: Bacteria Urine None Seen
[2018-02-27 14:38] LABS: RBC Urine 1-5/HPF (0-5/HPF)
[2018-02-27 14:39] LABS: Amorphous Sediment Urine 3+; Culture Indicated Urine Cult Not Indicated; Mucus Urine 3+ (Negative); Squamous Epithelial Cell Urine 5-10 /HPF; WBC Urine 1-5/HPF (0-5/HPF)
--- NOTE | 2018-02-27 14:46 | ED_ITS ---
HPI - Abdominal Pain General Chief Complaint: Abdominal Pain Stated Complaint: stomach and back pain Time Seen by Provider: 02/27/18 14:36 Source: patient Limitations: no limitations History of Present Illness HPI narrative: This is a 42-year-old female comes to the emergency department with 3 days of abdominal pain that got progressively worse. She sits particularly in the upper abdomen and to the left side and in the back but hurts all over. She hurts in the front and into the back. Patient has been vomiting today. She has not been able to keep down any fluids. She has not had a bowel movement about 3 days. She has been passing gas for about 24 hr. She has been burping up a lot of gas. She had similar symptoms about a month ago and was told she had a kidney infection. She has not had any major changes in urination, frequency or urgency. She denies any vaginal bleeding or discharge. No fevers but she has been getting hot and cold with sweats. She has had her gallbladder out and had a back surgery. She is recently about a month ago. Related Data Home Medications Medication Instructions Recorded Confirmed gabapentin 1,200 mg PO TID 02/27/18 02/27/18 Allergies Allergy/AdvReac Type Severity Reaction Status Date / Time ketamine Allergy Verified 11/26/17 17:34 Review of Systems Review of Systems All systems reviewed & are unremarkable except as noted in HPI and below Constitutional Reports body ache(s) and Reports chills Cardiovascular Denies chest pain, Denies irregular heart rhythm, Denies lightheadedness, Denies palpitations, Denies dyspnea, Denies dyspnea on exertion and Denies orthopnea Respiratory Denies cough, Denies dyspnea, Denies dyspnea on exertion and Denies wheezing Gastrointestinal Gastrointestinal: Reports abdominal pain, Reports belching, Reports constipation , Reports nausea and Reports vomiting Genitourinary Reports abnormal menses, Denies hematuria, Reports flank pain and Denies urinary urgency Endocrine Denies palpitations Allergic/Immunologic Denies wheezing PFSH Medical History Alcohol abuse (Chronic) Chronic back pain (Chronic) Opioid abuse (Chronic) Surgical History History of cholecystectomy (Acute) Social History household members: significant other and friend(s) Smoking Status: Current some day smoker alcohol intake: current Exam Initial Vital Signs Initial Vital Signs: Vital Signs Temperature 97.6 F 02/27/18 13:05 Pulse Rate 80 02/27/18 13:05 Respiratory Rate 18 02/27/18 13:05 Pulse Oximetry 98 02/27/18 13:05 Const General: cooperative, well developed and acute distress (Moderate) Nutritional Appearance: well nourished Orientation: alert, awake, oriented x3 and not confused Chest Chest: normal inspection of the chest Resp Effort & Inspection: normal respiratory effort, able to speak in complete sentences, no respiratory distress and no use of accessory muscles Auscultation: clear to auscultation bilaterally, no rales, no rhonchi and no wheezes Cardio Rate: regular rate Rhythm: regular rhythm Heart Sounds: no click, no gallops, no murmurs and no rubs Pulses: normal peripheral pulses GI Inspection: normal to inspection and distended (Mildly) Palpation: soft, No no hepatosplenomegaly, No firm, No guarding and tender ( Left upper and lower in particular) Auscultation: hypoactive bowel sounds General: CVA tenderness (Bilaterally but greater on the left) Skin General: no rashes or lesions noted, No jaundice and No petechiae Course Orders Ordered: ED Orders 02/27/18 13:30 Complete Blood Count AUTO DIFF Stat Comprehensive Metabolic Panel Stat Lipase Stat Partial Thromboplastin Time Stat Prothrombin Time INR Stat 02/27/18 14:00 Urine Microscopic Stat 02/27/18 15:05 CT abdomen pelvis w con Stat 02/27/18 15:11 Test Urine Stat Metronidazole (Flagyl) 500 mg in 100 mls @ 100 mls/hr IV NOW ONE Stop: 02/27/18 19:14 Last Admin: 02/27/18 18:21 Dose: 100 mls/hr Levofloxacin (Levaquin) 750 mg in 150 mls @ 100 mls/hr IV NOW ONE Stop: 02/27/18 19:44 Sodium Chloride (Normal Saline 0.9%) 1,000 mls @ 150 mls/hr IV CONT LEONORA Last Admin: 02/27/18 18:22 Dose: 150 mls/hr Ondansetron HCl (Zofran) 4 mg IV Q4HR PRN PRN Reason: Nausea And Vomiting Last Admin: 02/27/18 18:10 Dose: 4 mg Discontinued Medications Hydromorphone HCl (Dilaudid) 1 mg IV NOW ONE Stop: 02/27/18 17:51 Last Admin: 02/27/18 18:10 Dose: 1 mg Sodium Chloride (Normal Saline 0.9%) 1,000 mls @ 1,000 mls/hr IV BOLUS ONE Stop: 02/27/18 14:48 Last Infusion: 02/27/18 14:56 Dose: 0 mls/hr Admin: 02/27/18 13:40 Dose: 1,000 mls/hr Ketorolac Tromethamine (Toradol) 30 mg IV NOW ONE Stop: 02/27/18 16:48 Last Admin: 02/27/18 16:52 Dose: 30 mg Morphine Sulfate (Morphine) 4 mg IV NOW ONE Stop: 02/27/18 15:06 Last Admin: 02/27/18 15:13 Dose: 4 mg Morphine Sulfate (Morphine) 4 mg IV NOW ONE Stop: 02/27/18 16:15 Last Admin: 02/27/18 16:21 Dose: 4 mg Ondansetron HCl (Zofran) 4 mg IV NOW ONE Stop: 02/27/18 13:13 Last Admin: 02/27/18 13:40 Dose: 4 mg Ondansetron HCl (Zofran) 4 mg IV NOW ONE Stop: 02/27/18 15:06 Last Admin: 02/27/18 15:13 Dose: 4 mg Reevaluation(s) Reevaluation #1: Patient's emesis is improved but she still quite uncomfortable. She has had for mg of morphine and another 4 were ordered. Time: 16:06 Reevaluation #2: Patient was re-evaluated she scale uncomfortable she is now having emesis again. Another 4 mg of Zofran was ordered patient was given Toradol which did not have much effect which was followed by Deepak. Patient continues to have difficulty with emesis and the hospitalist was contacted about possible observation or admission. Time: 17:24 Vital Signs - 8 hr 02/27/18 13:05 02/27/18 13:19 02/27/18 13:56 Temperature 97.6 F 98.3 F Pulse Rate 80 64 Respiratory Rate 18 18 18 Blood Pressure [Left Arm] 135/74 130/74 Pulse Oximetry 98 97 100 02/27/18 14:42 02/27/18 15:57 02/27/18 16:59 Temperature Pulse Rate 70 62 56 L Respiratory Rate 18 16 Blood Pressure [Left Arm] 111/70 114/60 115/65 Pulse Oximetry 100 98 100 MDM - Abdominal Pain Lab Data Attestation: I reviewed the patient's lab results. Result diagrams: 02/27/18 13:30 02/27/18 13:30 Lab Results 02/27/18 02/27/18 02/27/18 Range/Units 13:30 13:30 13:30 WBC 6.7 (4.5-11.0) X10^3/uL RBC 4.29 (4.0-5.2) X10^6/uL Hgb 15.3 (12.0-16.0) g/dL Hct 43.2 (36-46) % MCV 100.6 H (80-100) fL MCH 35.6 H (26-34) PG MCHC 35.4 (30-36) % RDW 13.3 (11.6-14.8) % Plt Count 273 (150-400) X10^3/uL Neut % (Auto) 60.7 (50-75) % Lymph % (Auto) 30.4 (25-40) % Cal[place]oun % (Auto) 7.3 (3-14) % Eos % (Auto) 0.8 L (2-4) % Baso % (Auto) 0.8 (0-2) % Neut # (Auto) 4000 (9742-3046) /uL PT 13.2 H (10.1-12.7) SECONDS INR 1.2 (0.9-1.3) APTT 29 (26.4-36.2) SECONDS Sodium 144 (137-145) mmol/L Potassium 4.0 (3.4-5.1) mmol/L Chloride 106 (98-107) mmol/L Carbon Dioxide 25 (22-32) mmol/L BUN 12 (7-17) mg/dL Creatinine 0.60 (0.52-1.04) mg/dL Estimated GFR > 60.0 (>60) mL/min BUN/Creatinine Ratio 20.0 (6-22) Glucose 94 (70-100) mg/dL Calcium 9.1 (8.4-10.2) mg/dL Total Bilirubin 1.1 (0.2-1.3) mg/dL AST 30 (14-36) IU/L ALT 31 (9-52) IU/L Alkaline Phosphatase 91 (38-126) U/L Total Protein 7.5 (6.3-8.2) g/dL Albumin 4.5 (3.5-5.0) g/dL Globulin 3.0 (1.7-4.1) g/dL Albumin/Globulin Ratio 1.5 (1.0-2.8) Lipase 119 (23-300) U/L Urine RBC (0-5/HPF) Urine WBC (0-5/HPF) Ur Squamous Epith Cells Amorphous Sediment Urine Bacteria (None) Urine Mucus (Negative) Ur Culture Indicated? Micro UA Comment Urine Test (Negative) 02/27/18 02/27/18 Range/Units 14:00 15:11 WBC (4.5-11.0) X10^3/uL RBC (4.0-5.2) X10^6/uL Hgb (12.0-16.0) g/dL Hct (36-46) % MCV (80-100) fL MCH (26-34) PG MCHC (30-36) % RDW (11.6-14.8) % Plt Count (150-400) X10^3/uL Neut % (Auto) (50-75) % Lymph % (Auto) (25-40) % Cal[place]oun % (Auto) (3-14) % Eos % (Auto) (2-4) % Baso % (Auto) (0-2) % Neut # (Auto) (0566-3250) /uL PT (10.1-12.7) SECONDS INR (0.9-1.3) APTT (26.4-36.2) SECONDS Sodium (137-145) mmol/L Potassium (3.4-5.1) mmol/L Chloride (98-107) mmol/L Carbon Dioxide (22-32) mmol/L BUN (7-17) mg/dL Creatinine (0.52-1.04) mg/dL Estimated GFR (>60) mL/min BUN/Creatinine Ratio (6-22) Glucose (70-100) mg/dL Calcium (8.4-10.2) mg/dL Total Bilirubin (0.2-1.3) mg/dL AST (14-36) IU/L ALT (9-52) IU/L Alkaline Phosphatase (38-126) U/L Total Protein (6.3-8.2) g/dL Albumin (3.5-5.0) g/dL Globulin (1.7-4.1) g/dL Albumin/Globulin Ratio (1.0-2.8) Lipase (23-300) U/L Urine RBC 1-5/hpf (0-5/HPF) Urine WBC 1-5/hpf (0-5/HPF) Ur Squamous Epith Cells 5-10 /hpf H Amorphous Sediment 3+ Urine Bacteria None seen (None) Urine Mucus 3+ H (Negative) Ur Culture Indicated? Cult not indicated Micro UA Comment Not Reportable Urine Test Negative (Negative) Point of care testing: Urine Dip Bedside Urine Glucose Negative Bedside Urine Bilirubin - Negative Bedside Urine Ketone - Negative Urine Specific [place] 1.015 Bedside Urine Occult Blood ++ Bedside Urine pH 7.5 Bedside Urine Protein +/- 15 Bedside Urine Urobilinogen +/- 1mg Bedside Urine Nitrite - Negative Bedside Urine Leukocytes +++ [address] scan - abdomen: Attestation: I personally reviewed and interpreted this imaging study as follows: Radiologist's impression: [address] [address] [address] Scan Report Signed Patient: Vane Mcclellan MR#: [id number] : 1975 Acct:[id number] Age/Sex: 42 / F Date of Service: 02/27/18 Loc: ED Accession Number: [id number] Procedure: CT abdomen pelvis w con Ordering Provider: Gemini Coulter D.O. PROCEDURE: CT ABDOMEN PELVIS W CON INDICATIONS: abdominal pain, left sided, no BM x 3 days, no flatus, vomit TECHNIQUE: After the administration of oral and intravenous contrast, 5 mm thick sections acquired from the diaphragms to the symphysis. 5 mm thick coronal and sagittal reformats were performed. For radiation dose reduction, the following was used: automated exposure control, adjustment of mA and/or kV according to patient size. COMPARISON: [facility], CT, CT ABDOMEN PELVIS W CON, 11/26/2017, 18:53. FINDINGS: Image quality: Excellent. ABDOMEN: Lung bases: Lung bases are clear. Heart size is normal. Solid organs: Liver is normal in size and enhancement. Gallbladder is surgically absent. Mild intrahepatic and extrahepatic biliary dilatation is similar to the examination from 11/26/17 and may be within normal limits, given the patient's history of prior cholecystectomy. Pancreas enhances normally. Spleen is normal in size and enhancement. No adrenal nodules. Kidneys are normal in size and enhancement, without hydronephrosis. Peritoneum and bowel: There is a small hiatal hernia. The stomach and duodenum are otherwise unremarkable. There are a few noncontinuous areas of mild fluid- filled prominence of multiple small bowel loops within the imaged small bowel. There also are a few scattered areas of the small bowel wall thickening involving the jejunum. Areas of fluid are seen within the colon. There are scattered areas of colonic wall thickening. The appendix is well-visualized and normal in size. There is no free fluid, loculated fluid collection or free air. Nodes and vessels: No retroperitoneal or mesenteric adenopathy. Aorta and inferior vena cava are normal in caliber. Miscellaneous: No ventral hernias. PELVIS: Genitourinary: Bladder wall thickness is normal. The uterus and ovaries do not appear to be enlarged. Miscellaneous: No inguinal hernias or adenopathy. No free fluid or loculated fluid collection is evident within the pelvis. Bones: No suspicious bony lesions. No vertebral body compression fractures. Bilateral L5 pars defects are present with corresponding grade 1 anterolisthesis. IMPRESSION: 1. Diffuse areas of wall thickening involving the colon and scattered areas of wall thickening involving the small bowel does raise the suspicion for possible enterocolitis, which could potentially be either infectious or inflammatory in nature and clinical correlation is recommended. 2. No evidence of a complete bowel obstruction. 3. Small hiatal hernia. 4. Bilateral L5 pars defects with corresponding grade 1 spondylolisthesis. Dictated by: Jan Cordoba M.D. on 02/27/2018 at 14:46 Approved by: Jan Cordoba M.D. on 02/27/2018 at 14:50 [facility] Narrative Medical decision making narrative: This is a 42-year-old female who comes in with abdominal pain she is quite tender on examination particularly in the left upper and lower quadrant. CT imaging shows changes consistent with an enterocolitis. Patient does not have an elevated white count she has been afebrile here in the emergency department. She has continued to be nauseated having emesis as well as abdominal pain after multiple doses of medication. Case was discussed with Dr. Spivey who is the hospitalist and was accepted for observation. Dr. Spivey plans on Flagyl and Levaquin which was then ordered here in the emergency department as well as a 2nd L of fluids alert 150 cc/hour. Discharge Plan Departure Patient Disposition: Admitted As Inpatient Clinical Impression: Enterocolitis Instructions: DI for Colitis Additional Instructions: Follow-up with primary care the next 48-36 hours for re-evaluation. Take medications as prescribed, these medications can make you sleepy so do not drive, perform hazards activities or make any major decisions while taking them. Return to the emergency department if you have fevers greater than 100.4, increasing abdominal pain, black or bloody stools or worsening symptoms. Admit Date/Time: 02/27/18 18:24 Admit Provider: Franchesca Spivey
--- NOTE | 2018-02-27 15:05 | DI.CT.S_ITS ---
PROCEDURE: CT ABDOMEN PELVIS W CON INDICATIONS: abdominal pain, left sided, no BM x 3 days, no flatus, vomit TECHNIQUE: After the administration of oral and intravenous contrast, 5 mm thick sections acquired from the diaphragms to the symphysis. 5 mm thick coronal and sagittal reformats were performed. For radiation dose reduction, the following was used: automated exposure control, adjustment of mA and/or kV according to patient size. COMPARISON: [facility], CT, CT ABDOMEN PELVIS W CON, 11/26/2017, 18:53. FINDINGS: Image quality: Excellent. ABDOMEN: Lung bases: Lung bases are clear. Heart size is normal. Solid organs: Liver is normal in size and enhancement. Gallbladder is surgically absent. Mild intrahepatic and extrahepatic biliary dilatation is similar to the examination from 11/26/17 and may be within normal limits, given the patient's history of prior cholecystectomy. Pancreas enhances normally. Spleen is normal in size and enhancement. No adrenal nodules. Kidneys are normal in size and enhancement, without hydronephrosis. Peritoneum and bowel: There is a small hiatal hernia. The stomach and duodenum are otherwise unremarkable. There are a few noncontinuous areas of mild fluid-filled prominence of multiple small bowel loops within the imaged small bowel. There also are a few scattered areas of the small bowel wall thickening involving the jejunum. Areas of fluid are seen within the colon. There are scattered areas of colonic wall thickening. The appendix is well-visualized and normal in size. There is no free fluid, loculated fluid collection or free air. Nodes and vessels: No retroperitoneal or mesenteric adenopathy. Aorta and inferior vena cava are normal in caliber. Miscellaneous: No ventral hernias. PELVIS: Genitourinary: Bladder wall thickness is normal. The uterus and ovaries do not appear to be enlarged. Miscellaneous: No inguinal hernias or adenopathy. No free fluid or loculated fluid collection is evident within the pelvis. Bones: No suspicious bony lesions. No vertebral body compression fractures. Bilateral L5 pars defects are present with corresponding grade 1 anterolisthesis. IMPRESSION: 1. Diffuse areas of wall thickening involving the colon and scattered areas of wall thickening involving the small bowel does raise the suspicion for possible enterocolitis, which could potentially be either infectious or inflammatory in nature and clinical correlation is recommended. 2. No evidence of a complete bowel obstruction. 3. Small hiatal hernia. 4. Bilateral L5 pars defects with corresponding grade 1 spondylolisthesis. Dictated by: Jan Cordoba M.D. on 02/27/2018 at 14:46 Approved by: Jan Cordoba M.D. on 02/27/2018 at 14:50
[2018-02-27] MEDS: MORPHINE 4 MG/ML INJ IV ×2 (15:13→16:21)
[2018-02-27 15:19] LABS: Pregnancy Test Urine Negative (Negative)
[2018-02-27] MEDS: KETOROLAC 60 MG/2 ML VIAL 30 MG IV (16:52)
[2018-02-27] MEDS: HYDROMORPHONE 1 MG INJ IV (18:10)
[2018-02-27] MEDS: metroNIDAZOLE 500 MG/100 ML PIGGYBACK 100 MG IV (18:21)
[2018-02-27] MEDS: SODIUM CHLORIDE 0.9% 1,000 ML 150 ML IV (18:22)
[2018-02-27] MEDS: LORazepam 2 MG/ML SYRINGE 1 MG IV ×2 (18:47→21:30)
[2018-02-27] MEDS: levoFLOXacin 750 MG/150 ML PIGGYBACK 100 MG IV (19:35)
--- NOTE | 2018-02-27 21:18 | PM.HP.1 ---
History of Present Illness Date Patient Seen: 02/27/18 Time Patient Seen: 21:19 Chief complaint: stomach and back pain Narrative: 42-year-old female who primarily gets her care through the [facility] presents with 3 day history of nausea vomiting diarrhea abdominal pain. No fevers she is having frequent diarrhea and says she can't keep anything down for several days. She ran out of her gabapentin a week ago she normally takes that for her chronic back pain she also has a history of a stimulator in place. She was last here in the hospital in November with pyelonephritis and positive blood cultures at that time. Previous history of alcohol abuse and opioid abuse although she currently denies any illicit opioid abuse or use. She does have a history of chronic back pain Patient History Medical History Alcohol abuse (Chronic) Chronic back pain (Chronic) Opioid abuse (Chronic) Surgical History H/O Spinal surgery (Acute) H/O knee surgery (Acute) History of cholecystectomy (Acute) Family & Social History Social History: household members significant other,friend(s) Safety & Behavioral: Feels Safe in Current Yes Environment Been Physically Hurt or No Threatened By a Person Suicidal Ideation Description None Suicide Plan Description No Plan Tobacco & Substance use: Tobacco type cigarettes,cannabis/marijuana Smoking Status Current some day smoker alcohol intake current alcohol intake frequency holiday/special occasion Substance Use Type marijuana Meds Home Medications Medication Instructions Recorded Confirmed Type gabapentin 1,200 mg PO TID 02/27/18 02/27/18 History Allergies Allergy/AdvReac Type Severity Reaction Status Date / Time ketamine Allergy Verified 11/26/17 17:34 Review of Systems Constitutional Constitutional: Denies chills and Denies fever(s) Eyes Eyes: Reports system reviewed; no additional complaints, except as documented ENT Ears, Nose, Mouth, and Throat: Yes system reviewed; no additional complaints, except as documented Cardiovascular Cardiovascular: Reports system reviewed; no additional complaints, except as documented Respiratory Respiratory: Reports system reviewed and no additional complaints, except as documented Gastrointestinal Gastrointestinal: Reports abdominal pain, Reports nausea and Reports vomiting Genitourinary Genitourinary: Reports system reviewed and no additional complaints, except as documented Musculoskeletal Musculoskeletal: Reports system reviewed; no additional complaints, except as documented Integumentary/Breasts Skin/Breast: Reports system reviewed and no additional complaints, except as documented Neurologic Neurologic: Reports system reviewed and no additional complaints, except as documented Psychiatric Psychiatric: Reports system reviewed and no additional complaints, except as documented Endocrine Endocrine: Reports system reviewed and no additional complaints, except as documented Hematologic/Lymphatic Hematologic/Lymphatic: Reports system reviewed and no additional complaints, except as documented Allergic/Immunologic Allergic/Immunologic: Reports system reviewed and no additional complaints, except as documented Exam Vital Signs (past 8 hours): - 02/27/18 13:19 02/27/18 13:56 02/27/18 14:42 Temperature 98.3 F Pulse Rate 64 70 Respiratory Rate 18 18 18 Blood Pressure Blood Pressure [Left Arm] 135/74 130/74 111/70 Pulse Oximetry 97 100 100 02/27/18 15:57 02/27/18 16:59 02/27/18 18:30 Temperature Pulse Rate 62 56 L 60 Respiratory Rate 16 18 Blood Pressure Blood Pressure [Left Arm] 114/60 115/65 120/64 Pulse Oximetry 98 100 98 02/27/18 19:50 Temperature 98.1 F Pulse Rate 62 Respiratory Rate 18 Blood Pressure 122/72 Blood Pressure [Left Arm] Pulse Oximetry 99 Oxygen Delivery Method Room Air Narrative Exam Narrative: Middle-aged female who appears to be in significant discomfort with pain. HEENT exam unremarkable Neck no bruit no JVD Heart regular rhythm no murmur Lungs Clear to auscultation Abdomen soft tender to palpation throughout and decreased bowel sounds no masses Lower extremities no edema Skin warm and dry Neuro exam unremarkable Objective Labs Result Diagrams: 02/27/18 13:30 02/27/18 13:30 Labs: Laboratory Results - last 24 hr 02/27/18 02/27/18 02/27/18 13:30 13:30 13:30 WBC 6.7 RBC 4.29 Hgb 15.3 Hct 43.2 MCV 100.6 H MCH 35.6 H MCHC 35.4 RDW 13.3 Plt Count 273 Neut % (Auto) 60.7 Lymph % (Auto) 30.4 Nolan % (Auto) 7.3 Eos % (Auto) 0.8 L Baso % (Auto) 0.8 Neut # (Auto) 4000 PT 13.2 H INR 1.2 APTT 29 Sodium 144 Potassium 4.0 Chloride 106 Carbon Dioxide 25 BUN 12 Creatinine 0.60 Estimated GFR > 60.0 BUN/Creatinine Ratio 20.0 Glucose 94 Calcium 9.1 Total Bilirubin 1.1 AST 30 ALT 31 Alkaline Phosphatase 91 Total Protein 7.5 Albumin 4.5 Globulin 3.0 Albumin/Globulin Ratio 1.5 Lipase 119 Urine RBC Urine WBC Ur Squamous Epith Cells Amorphous Sediment Urine Bacteria Urine Mucus Ur Culture Indicated? Micro UA Comment Urine Test 02/27/18 02/27/18 14:00 15:11 WBC RBC Hgb Hct MCV MCH MCHC RDW Plt Count Neut % (Auto) Lymph % (Auto) Nolan % (Auto) Eos % (Auto) Baso % (Auto) Neut # (Auto) PT INR APTT Sodium Potassium Chloride Carbon Dioxide BUN Creatinine Estimated GFR BUN/Creatinine Ratio Glucose Calcium Total Bilirubin AST ALT Alkaline Phosphatase Total Protein Albumin Globulin Albumin/Globulin Ratio Lipase Urine RBC 1-5/hpf Urine WBC 1-5/hpf Ur Squamous Epith Cells 5-10 /hpf H Amorphous Sediment 3+ Urine Bacteria None seen Urine Mucus 3+ H Ur Culture Indicated? Cult not indicated Micro UA Comment Not Reportable Urine Test Negative Assessment & Plan Plan: Assessment/Plan Narrative: One. Abdominal pain with nausea vomiting diarrhea CT scan showing antral colitis changes. White count normal no fever plan to initially treat with IV fluids IV antibiotics NPO status initially and will observe her overnight under observation status. Blood cultures to be drawn. Plan to reassess in the morning. Plan to place her on Toradol IV and then nausea medications and Ativan and Zofran. 2. History of chronic back pain she has been on gabapentin and when she can take orally again will place her back on that. She denies any opioid use recently.
[2018-02-27] MEDS: DEXTROSE 5%-0.9% NS 1,000 ML 100 ML IV (21:33)
[2018-02-27] MEDS: KETOROLAC 30 MG/ML VIAL IV (23:32)
--- NOTE | 2018-02-28 01:20 | PC.NURSE ---
0000 Patient started at shift change crying about how much pain she is in. Provided Toradol to which patient stated that won't help. Informed this is the medication the MD has ordered so would need to try first and then if that did not help the MD would be contacted for additional orders. Was also medicated with Zofran for complaint of nausea but no emesis. Constantly talking and swearing nearly every other word. Attempted to converse with patient in calm voice but patient continued to state that no one has done anything to help her since she arrived on the floor and that she wanted to have MD phone number or go back to ER because she got help while there. Also requesting Ativan but was informed she couldn't have that again until 0. Shortly after conversation found patient up walking in su with spouse and states she needs to go outside to get some fresh air. Informed patient and spouse that hospital policy is that patient's are not allowed to leave the building and if they do so they are considered to be leaving AMA. Patient states she has the right and all she has to do is sign the paper. Had Makayla, coordinator, discuss policy with patient and she again reiterated the same information. Patient/spouse continued to walk toward elevator. Call placed to Dr Burton informing him of patient's complaints of pain and statement that Toradol does not help and that Ativan was last given at 0 so too early to repeat. Reviewed pain medication she had received in ER and received order for IV Dilaudid prn. During discussion also discussed that patient is insisting on leaving facility for some fresh air and MD stated she cannot do so or she is leaving AMA. After phone call went to find patient/spouse and found they had exited out the main door of the hospital. When informed of the discussion with Dr Burton and policy of AMA they were upset and accusing staff of caring more about policy than about patient. Informed that we would be taking out IV and patient could go back to the emergency room and be seen again. Spouse states patient has rights that supercede policy. Once back in room patient continued to cry and initially refused to have IV removed but with husbands encouragement did allow IV to be taken out. After IV removed noticed that spouse was videotaping the interaction with his cell phone and kept stating that we were kicking the patient out. Calmly informed both that we had clearly informed them of the policy and that while she was considered AMA she could still return to the emergency room to be seen again. Security was with RN, coordinator, patient and spouse from time patient reentered building until patient and spouse left room at [id number].
== END 2018-02-28 00:15 | disposition home or self-care (01) ==
LOC: ED 18:01 → AC 02-28 13:21
PROVIDERS: Admitting Provider Internal Medicine; Emergency Provider Emergency Medicine; Visit Provider Internal Medicine
DX: K52.9 Noninfective gastroenteritis and colitis, unspecified (principal); R10.9 Unspecified abdominal pain; G89.29 Other chronic pain; F11.11 Opioid abuse, in remission; F10.11 Alcohol abuse, in remission; F17.210 Nicotine dependence, cigarettes, uncomplicated; Z53.21 Procedure and treatment not carried out due to patient leaving prior to being seen by health care provider
CPT/HCPCS: 36591; 74177; 80053; 81003; 81015; 81025; 83690; 85025; 85610; 85730; 96361; 96374; 96375; 96376; 99285; G0378; J1170; J1885; J1956; J2060; J2270; J2405; Q9967